=== PATIENT | male | born 1955 | race Caucasian/White ===

== ENCOUNTER 2017-10-21 07:15 | Emergency (ER) | payer MEDICAID ==
--- NOTE | 2017-10-21 08:30 | EDM.PDOC ---
ED HPI GENERAL MEDICAL PROBLEM - General Chief Complaint: Cardiovascular Problem Stated Complaint: RAPID HEARTBEAT Time Seen by Provider: 10/21/17 07:45 Source of Information: Reports: Patient, Family History Limitations: Reports: No Limitations - History of Present Illness INITIAL COMMENTS - FREE TEXT/NARRATIVE: 62-year-old male with mild tremor, "shakiness", and mild tachycardia over the past several weeks. His brother noticed his symptoms 3 days ago and convinced him to stop drinking coffee, the patient has also been on a very strict ketogenic diet for several weeks. He has had some significant weight loss. He denies any fever or chills, however he does have a temperature of 101.5. Has a chronic slight cough, no nausea or vomiting, normal bowels, no gastrointestinal or symptoms. Has no pain. No headaches. Sleeps well. He feels his appetite is normal. No significant edema, no trauma, he has not seen a doctor in 18 years. He quit smoking 2 years ago. Onset: Unknown/Unsure Severity: Mild Associated Symptoms: Reports: Cough. Denies: Confusion, Chest Pain, Headaches, Loss of Appetite, Malaise, Nausea/Vomiting, Shortness of Breath, Weakness - Related Data Allergies Allergy/AdvReac Type Severity Reaction Status Date / Time Tetanus Vaccines and Toxoid Allergy Other Verified 10/21/17 07:38 Home Meds: Home Meds Ascorbic Acid [Vitamin C] 1,000 mg PO DAILY 10/21/17 [History] Multivitamin [Multivitamins] 1 tab PO DAILY 10/21/17 [History] Ranitidine [Zantac] 75 mg PO DAILY PRN 10/21/17 [History] Past Medical History Respiratory History: Reports: Other (See Below) Other Respiratory History: patient has not had a daignosis but c/o "breathing issues"-50 year-1-2ppd hx. Genitourinary History: Reports: Pyelonephritis Musculoskeletal History: Reports: Fracture Neurological History: Reports: Other (See Below) Other Neuro History: hx of aneurysm, with surgical repair, has a shunt. Social & Family History - Tobacco Use Smoking Status *Q: Former Smoker Used Tobacco, but Quit: Yes Month/Year Tobacco Last Used: 0 - Recreational Drug Use Recreational Drug Use: No ED ROS GENERAL - Review of Systems Review Of Systems: See Below Constitutional: Reports: Chills, Night Sweats, Weight Loss (Intentional). Denies: Malaise, Weakness HEENT: Reports: No Symptoms Respiratory: Reports: Cough. Denies: Shortness of Breath Cardiovascular: Reports: Palpitations (Patient's tachycardia is mostly monitored with palpation or on home monitor, he does not feel a lot of symptoms or palpitations). Denies: Chest Pain GI/Abdominal: Denies: Abdominal Pain, Anorexia, Decreased Appetite, Nausea, Vomiting : Reports: No Symptoms Musculoskeletal: Reports: No Symptoms Skin: Reports: No Symptoms Neurological: Reports: Other (Chronic "shakiness") Psychiatric: Reports: No Symptoms ED EXAM, GENERAL - Physical Exam Exam: See Below Exam Limited By: No Limitations General Appearance: Alert, No Apparent Distress Eye Exam: Bilateral Eye: Normal Inspection Throat/Mouth: Normal Inspection Head: Atraumatic Respiratory/Chest: No Respiratory Distress, Decreased Breath Sounds (Some decreased breath sounds at both bases, no rales or rhonchi are heard) Cardiovascular: Regular Rate, Rhythm, Tachycardia, Extra Beats (Occasional ectopic beat) GI/Abdominal: Soft, Non-Tender, No Distention, No Mass. No: Hepatomegaly Back Exam: Normal Inspection Extremities: Normal Inspection. No: Pedal Edema Neurological: Alert, Oriented, No Motor/Sensory Deficits Psychiatric: Normal Affect, Normal Mood Skin Exam: Warm, Dry EKG INTERPRETATION EKG Date: 10/21/17 Rhythm: NSR Rate (Beats/Min): 112 QRS: Normal EKG Interpretation Comments: EKG is normal sinus rhythm, monitor shows occasional PVC or PAC not captured on EKG. Course - Vital Signs Last Recorded V/S: Last Vital Signs Temp 100.5 F 10/21/17 09:01 Pulse 116 H 10/21/17 09:01 Resp 16 10/21/17 09:01 BP 125/79 10/21/17 09:01 Pulse Ox 97 10/21/17 09:01 - Orders/Labs/Meds Orders: Active Orders 24 hr Category Date Time Status EKG Documentation Completion [RC] ASDIRECTED Care 10/21/17 08:07 Active DRUG SCREEN, URINE [URCHEM] Stat Lab 10/21/17 08:32 Ordered UA W/MICROSCOPIC [URIN] Urgent Lab 10/21/17 08:32 Ordered EKG 12 Lead [EK] Routine Ther 10/21/17 08:06 Ordered Labs: Laboratory Tests 10/21/17 10/21/17 10/21/17 Range/Units 08:06 08:06 08:07 WBC 19.9 H (4.5-11.0) K/uL RBC 3.81 L (4.30-5.90) M/uL Hgb 11.6 L (12.0-15.0) g/dL Hct 35.2 L (40.0-54.0) % MCV 92 (80-98) fL MCH 30 (27-31) pg MCHC 33 (32-36) % Plt Count 582 H (150-400) K/uL Neut % (Auto) 91 H (36-66) % Lymph % (Auto) 3 L (24-44) % [place] % (Auto) 6 (2-6) % Eos % (Auto) 0 L (2-4) % Baso % (Auto) 0 (0-1) % Sodium 128 L (140-148) mmol/L Potassium 3.6 (3.6-5.2) mmol/L Chloride 90 L (100-108) mmol/L Carbon Dioxide 32 (21-32) mmol/L Anion Gap 9.6 (5.0-14.0) mmol/L BUN 10 (7-18) mg/dL Creatinine 0.9 (0.8-1.3) mg/dL Est Cr Clr Drug Dosing 78.15 mL/min Estimated GFR (MDRD) > 60 (>60) Glucose 117 H (74-106) mg/dL Calcium 8.2 L (8.5-10.1) mg/dL Total Bilirubin 0.5 (0.2-1.0) mg/dL AST 56 H (15-37) U/L ALT 48 (12-78) U/L Alkaline Phosphatase 72 (46-116) U/L Total Protein 7.2 (6.4-8.2) g/dL Albumin 1.8 L (3.4-5.0) g/dL Globulin 5.4 H (2.3-3.5) g/dL Albumin/Globulin Ratio 0.3 L (1.2-2.2) TSH, Ultra Sensitive 2.020 (0.358-3.740) uIU/mL Urine Color Urine Appearance Urine pH (4.5-8.0) Ur Specific [place] (1.008-1.030) Urine Protein (NEGATIVE) mg/dL Urine Glucose (UA) (NEGATIVE) mg/dL Urine Ketones (NEGATIVE) mg/dL Urine Occult Blood (NEGATIVE) Urine Nitrite (NEGAITVE) Urine Bilirubin (NEGATIVE) Urine Urobilinogen (NORMAL) mg/dL Ur Leukocyte Esterase (NEGATIVE) Urine RBC (0-5) Urine WBC (0-5) Ur Epithelial Cells Amorphous Sediment Urine Bacteria Urine Mucus Urine Opiates Screen (NEGATIVE) Ur Oxycodone Screen (NEGATIVE) Urine Methadone Screen (NEGATIVE) Ur Propoxyphene Screen (NEGATIVE) Ur Barbiturates Screen (NEGATIVE) Ur Tricyclics Screen (NEGATIVE) Ur Phencyclidine Scrn (NEGATIVE) Ur Amphetamine Screen (NEGATIVE) U Methamphetamines Scrn (NEGATIVE) Urine MDMA Screen (NEGATIVE) U Benzodiazepines Scrn (NEGATIVE) U Cocaine Metab Screen (NEGATIVE) U Marijuana (THC) Screen (NEGATIVE) 10/21/17 10/21/17 Range/Units 08:32 08:32 WBC (4.5-11.0) K/uL RBC (4.30-5.90) M/uL Hgb (12.0-15.0) g/dL Hct (40.0-54.0) % MCV (80-98) fL MCH (27-31) pg MCHC (32-36) % Plt Count (150-400) K/uL Neut % (Auto) (36-66) % Lymph % (Auto) (24-44) % [place] % (Auto) (2-6) % Eos % (Auto) (2-4) % Baso % (Auto) (0-1) % Sodium (140-148) mmol/L Potassium (3.6-5.2) mmol/L Chloride (100-108) mmol/L Carbon Dioxide (21-32) mmol/L Anion Gap (5.0-14.0) mmol/L BUN (7-18) mg/dL Creatinine (0.8-1.3) mg/dL Est Cr Clr Drug Dosing mL/min Estimated GFR (MDRD) (>60) Glucose (74-106) mg/dL Calcium (8.5-10.1) mg/dL Total Bilirubin (0.2-1.0) mg/dL AST (15-37) U/L ALT (12-78) U/L Alkaline Phosphatase (46-116) U/L Total Protein (6.4-8.2) g/dL Albumin (3.4-5.0) g/dL Globulin (2.3-3.5) g/dL Albumin/Globulin Ratio (1.2-2.2) TSH, Ultra Sensitive (0.358-3.740) uIU/mL Urine Color Yellow Urine Appearance Clear Urine pH 7.0 (4.5-8.0) Ur Specific [place] 1.005 L (1.008-1.030) Urine Protein Negative (NEGATIVE) mg/dL Urine Glucose (UA) Normal (NEGATIVE) mg/dL Urine Ketones Negative (NEGATIVE) mg/dL Urine Occult Blood Moderate (NEGATIVE) Urine Nitrite Negative (NEGAITVE) Urine Bilirubin Negative (NEGATIVE) Urine Urobilinogen Normal (NORMAL) mg/dL Ur Leukocyte Esterase Negative (NEGATIVE) Urine RBC 0-5 (0-5) Urine WBC Not seen (0-5) Ur Epithelial Cells Not seen Amorphous Sediment Not seen Urine Bacteria Not seen Urine Mucus Not seen Urine Opiates Screen Negative (NEGATIVE) Ur Oxycodone Screen Negative (NEGATIVE) Urine Methadone Screen Negative (NEGATIVE) Ur Propoxyphene Screen Negative (NEGATIVE) Ur Barbiturates Screen Negative (NEGATIVE) Ur Tricyclics Screen Negative (NEGATIVE) Ur Phencyclidine Scrn Negative (NEGATIVE) Ur Amphetamine Screen Negative (NEGATIVE) U Methamphetamines Scrn Negative (NEGATIVE) Urine MDMA Screen Negative (NEGATIVE) U Benzodiazepines Scrn Negative (NEGATIVE) U Cocaine Metab Screen Negative (NEGATIVE) U Marijuana (THC) Screen Positive H (NEGATIVE) - Re-Assessments/Exams Free Text/Narrative Re-Assessment/Exam: 10/21/17 08:34 Cardiac monitoring revealed a persistent sinus tachycardia rate between 108 and 120. Occasional PVC or PAC was present. His temperature was 101.5, a CBC, CMP, TSH, UA, urine drug screen, and two-view chest x-ray were obtained. 10/21/17 09:28 White count is 19,900, TSH is normal, UA is clear that the chest x-ray confirms a right upper lobe pneumonia. Patient is stable enough to be treated as an outpatient and he would prefer that. He was started on Levaquin 500 mg daily and will get 10 days worth, and recheck at the clinic in 2 weeks for another chest x-ray. He'll return sooner if worsening despite treatment. Encouraged him to stay hydrated and get a good normal diet until better. Departure - Departure Time of Disposition: 09:47 Disposition: Home, Self-Care 01 Condition: Fair Clinical Impression: Right upper lobe pneumonia Qualifiers: Pneumonia type: due to unspecified organism Qualified Code(s): J18.1 - Lobar pneumonia, unspecified organism Instructions: Community-Acquired Pneumonia, Adult, [id number] Referrals: PCP,None [Primary Care Provider] - Forms: ED Department Discharge Care Plan Goals: Take antibiotic daily as directed, drink lots of water and rest. Try to eat a regular diet until better. Recheck with Cherie Reed at the clinic in 2 weeks for a repeat chest x-ray in follow-up. Return sooner if worsening despite treatment such as shortness of breath, persistent nausea and vomiting or pain. - My Orders Last 24 Hours: My Active Orders 10/21/17 08:06 EKG 12 Lead [EK] Routine 10/21/17 08:07 EKG Documentation Completion [RC] ASDIRECTED 10/21/17 08:32 DRUG SCREEN, URINE [URCHEM] Stat UA W/MICROSCOPIC [URIN] Urgent - Assessment/Plan Last 24 Hours: My Active Orders 10/21/17 08:06 EKG 12 Lead [EK] Routine 10/21/17 08:07 EKG Documentation Completion [RC] ASDIRECTED 10/21/17 08:32 DRUG SCREEN, URINE [URCHEM] Stat UA W/MICROSCOPIC [URIN] Urgent
--- NOTE | 2017-10-21 09:04 | CR ---
Two-view chest There is focal density along the right upper lobe. The finding is most consistent with probable pneum onia. The remaining lung callejas are clear. The heart and vascular structures are within normal limits . Impression: 1. Right upper lobe infiltrate most consistent with pneumonia. Follow-up is recommended to confirm re solution.
== END 2017-10-21 09:47 | disposition home or self-care (01) ==
LOC: JP.ED 07:15
DX: J18.9 Pneumonia, unspecified organism (principal); Z87.891 Personal history of nicotine dependence; Z88.7 Allergy status to serum and vaccine
CPT/HCPCS: 36415; 71046; 71046-26; 80053; 80305-QW; 81001; 84443; 85025; 93005; 99284-25

== ENCOUNTER 2017-10-25 11:21 | Inpatient (IN) | payer MEDICAID ==
[2017-10-25] MEDS ORDERED: Sodium Chloride 0.9% 10 ML Syringe FLUSH PRN (12:30)
[2017-10-25] MEDS ORDERED: Sodium Chloride 0.9% 1,000 ML IV SCH (12:30)
--- NOTE | 2017-10-25 12:36 | EDM.PDOC ---
ED HPI GENERAL MEDICAL PROBLEM - General Chief Complaint: Respiratory Problem Stated Complaint: SENT FROM [place] FOR IV ANTIX Time Seen by Provider: 10/25/17 12:10 Source of Information: Reports: Patient, Family History Limitations: Reports: No Limitations - History of Present Illness INITIAL COMMENTS - FREE TEXT/NARRATIVE: Robbi presents today with complaints of worsening RUL pneumonia. He was evaluated at [facility] today and sent to the ER via private vehicle. He complains of worsening weakness, and not thinking clearly. He reports he has been taking levaquin 500mg PO daily as directed since 10/21/17. He was given rocephin 1 gram IM in the clinic today. - Related Data Allergies Allergy/AdvReac Type Severity Reaction Status Date / Time Tetanus Vaccines and Toxoid Allergy Other Verified 10/25/17 12:05 Home Meds: Home Meds Ascorbic Acid [Vitamin C] 1,000 mg PO DAILY 10/21/17 [History] Multivitamin [Multivitamins] 1 tab PO DAILY 10/21/17 [History] Ranitidine [Zantac] 75 mg PO DAILY PRN 10/21/17 [History] Past Medical History HEENT History: Reports: Impaired Vision Cardiovascular History: Reports: Arrhythmia Respiratory History: Reports: Other (See Below) Other Respiratory History: patient has not had a daignosis but c/o "breathing issues"-50 year-1-2ppd hx. Gastrointestinal History: Reports: Chronic Diarrhea Genitourinary History: Reports: Pyelonephritis Musculoskeletal History: Reports: Fracture Neurological History: Reports: Other (See Below) Other Neuro History: hx of aneurysm, with surgical repair, has a shunt. - Past Surgical History Head Surgeries/Procedures: Reports: None HEENT Surgical History: Reports: Tonsillectomy Cardiovascular Surgical History: Reports: None Respiratory Surgical History: Reports: None Dermatological Surgical History: Reports: None Social & Family History - Tobacco Use Smoking Status *Q: Former Smoker Used Tobacco, but Quit: Yes Month/Year Tobacco Last Used: 2015 Second Hand Smoke Exposure: No - Caffeine Use Caffeine Use: Reports: Soda - Recreational Drug Use Recreational Drug Use: No ED ROS GENERAL - Review of Systems Review Of Systems: See Below Constitutional: Reports: Fever, Chills, Malaise, Weakness HEENT: Reports: No Symptoms Respiratory: Reports: Shortness of Breath, Cough. Denies: Wheezing, Sputum, Hemoptysis Cardiovascular: Reports: No Symptoms Endocrine: Reports: No Symptoms GI/Abdominal: Reports: Abdominal Pain. Denies: Constipation, Diarrhea, Distension, Flatus, Nausea, Vomiting : Reports: No Symptoms Musculoskeletal: Reports: No Symptoms Skin: Reports: No Symptoms Neurological: Reports: Confusion, Headache, Weakness. Denies: Dizziness, Numbness, Tingling, Trouble Speaking, Difficulty Walking, Change in Speech, Gait Disturbance Psychiatric: Reports: No Symptoms Hematologic/Lymphatic: Reports: No Symptoms Immunologic: Reports: No Symptoms ED EXAM, GENERAL - Physical Exam Exam: See Below Free Text/Narrative:: Robbi is an alert and oriented 62 year old male presenting with with worsening CAP. Patient pale, diaphoretic at times with chills. He was started on levaquin 500mg PO daily on 10/21/17. He followed up in the clinic in [place] today for increased lethargy and confusion, failed outpatient antibiotic therapy. Clinic noted decreased Hgb and WBC 18 with left shift. Exam Limited By: No Limitations General Appearance: Alert, WD/WN, Mild Distress Eye Exam: Bilateral Eye: EOMI, Normal Inspection Ears: Normal External Exam, Normal Canal, Hearing Grossly Normal, Normal TMs Ear Exam: Bilateral Ear: Auricle Normal, Canal Normal, TM normal Nose: Normal Inspection, Normal Mucosa, No Blood Throat/Mouth: Normal Inspection, Normal Lips, Normal Gums, Normal Oropharynx, Normal Voice, No Airway Compromise Head: Atraumatic, Normocephalic Neck: Normal Inspection, Supple, Non-Tender, Full Range of Motion. No: Lymphadenopathy (R), Lymphadenopathy (L) Respiratory/Chest: No Respiratory Distress, No Accessory Muscle Use, Chest Non- Tender, Decreased Breath Sounds. No: Rales, Rhonchi, Wheezing Cardiovascular: Normal Peripheral Pulses, Regular Rate, Rhythm, No Murmur, Other (Bilateral lower leg 1+ edema) Peripheral Pulses: 2+: Radial (L), Radial (R), Dorsalis Pedis (L), Dorsalis Pedis (R) GI/Abdominal: Normal Bowel Sounds, Soft, Non-Tender, No Organomegaly, No Distention, No Abnormal Bruit, No Mass Back Exam: Normal Inspection, Full Range of Motion. No: CVA Tenderness (R), CVA Tenderness (L) Extremities: Normal Range of Motion, Non-Tender, Normal Capillary Refill, Pedal Edema Neurological: Alert, Oriented, CN II-XII Intact, Normal Cognition, Normal Gait, Normal Reflexes, No Motor/Sensory Deficits Psychiatric: Normal Affect, Normal Mood Skin Exam: Warm, Dry, Intact, Normal Color, No Rash Lymphatic: No Adenopathy Course - Vital Signs Last Recorded V/S: Last Vital Signs Temp 35.9 C 10/25/17 12:07 Pulse 87 10/25/17 13:28 Resp 16 10/25/17 13:28 BP 116/87 10/25/17 13:28 Pulse Ox 97 10/25/17 13:28 - Orders/Labs/Meds Orders: Active Orders 24 hr Category Date Time Status Vital Signs [RC] Q1H Care 10/25/17 12:28 Active CULTURE BLOOD [BC] Urgent Lab 10/25/17 12:45 Received CULTURE BLOOD [BC] Urgent Lab 10/25/17 12:45 Received UA W/MICROSCOPIC [URIN] Stat Lab 10/25/17 12:58 Ordered Sodium Chloride 0.9% [Normal Saline] 1,000 ml Med 10/25/17 12:30 Active IV ASDIRECTED Sodium Chloride 0.9% [Saline Flush] Med 10/25/17 12:30 Active 10 ml FLUSH ASDIRECTED PRN Blood Culture x2 Reflex Set [OM.PC] Urgent Oth 10/25/17 12:28 Ordered Saline Lock Insert [OM.PC] Routine Oth 10/25/17 12:30 Ordered Medication Orders Sodium Chloride (Normal Saline) 1,000 mls @ 500 mls/hr IV ASDIRECTED [facility] Last Admin: 10/25/17 12:57 Dose: 500 mls/hr Sodium Chloride (Normal Saline) 100 mls @ 3 mls/sec IV ASDIRECTED [facility] Last Admin: 10/25/17 15:41 Dose: 3 mls/sec Iopamidol (Isovue-300 (61%)) 100 ml IV . DIRECTED PRN PRN Reason: RADIOLOGY EXAM Stop: 10/26/17 15:35 Last Admin: 10/25/17 15:41 Dose: 100 ml Sodium Chloride (Saline Flush) 10 ml FLUSH ASDIRECTED PRN PRN Reason: Keep Vein Open Last Admin: 10/25/17 15:38 Dose: 10 ml Labs: Laboratory Tests 10/25/17 10/25/17 10/25/17 Range/Units 12:45 12:45 12:45 WBC 17.2 H (4.5-11.0) K/uL RBC 3.28 L (4.30-5.90) M/uL Hgb 10.0 L (12.0-15.0) g/dL Hct 30.4 L (40.0-54.0) % MCV 93 (80-98) fL MCH 31 (27-31) pg MCHC 33 (32-36) % Plt Count 546 H (150-400) K/uL Add Manual Diff Yes Neutrophils % (Manual) 79 H (36-66) % Band Neutrophils % 9 (5-11) % Lymphocytes % (Manual) 3 L (24-44) % Monocytes % (Manual) 9 H (2-6) % Sodium 127 L (140-148) mmol/L Potassium 3.7 (3.6-5.2) mmol/L Chloride 89 L (100-108) mmol/L Carbon Dioxide 33 H (21-32) mmol/L Anion Gap 8.7 (5.0-14.0) mmol/L BUN 12 (7-18) mg/dL Creatinine 0.9 (0.8-1.3) mg/dL Est Cr Clr Drug Dosing 78.15 mL/min Estimated GFR (MDRD) > 60 (>60) Glucose 136 H (74-106) mg/dL Lactic Acid 3.3 H (0.4-2.0) mmol/L Calcium 8.5 (8.5-10.1) mg/dL Total Bilirubin 0.4 (0.2-1.0) mg/dL AST 79 H (15-37) U/L ALT 66 (12-78) U/L Alkaline Phosphatase 79 (46-116) U/L C-Reactive Protein 20.65 H (0.0-0.3) mg/dL Total Protein 6.5 (6.4-8.2) g/dL Albumin 1.5 L (3.4-5.0) g/dL Globulin 5.0 H (2.3-3.5) g/dL Albumin/Globulin Ratio 0.3 L (1.2-2.2) Urine Color Urine Appearance Urine pH (4.5-8.0) Ur Specific [place] (1.008-1.030) Urine Protein (NEGATIVE) mg/dL Urine Glucose (UA) (NEGATIVE) mg/dL Urine Ketones (NEGATIVE) mg/dL Urine Occult Blood (NEGATIVE) Urine Nitrite (NEGAITVE) Urine Bilirubin (NEGATIVE) Urine Urobilinogen (NORMAL) mg/dL Ur Leukocyte Esterase (NEGATIVE) Urine RBC (0-5) Urine WBC (0-5) Ur Epithelial Cells Amorphous Sediment Urine Bacteria Urine Mucus 10/25/17 Range/Units 12:58 WBC (4.5-11.0) K/uL RBC (4.30-5.90) M/uL Hgb (12.0-15.0) g/dL Hct (40.0-54.0) % MCV (80-98) fL MCH (27-31) pg MCHC (32-36) % Plt Count (150-400) K/uL Add Manual Diff Neutrophils % (Manual) (36-66) % Band Neutrophils % (5-11) % Lymphocytes % (Manual) (24-44) % Monocytes % (Manual) (2-6) % Sodium (140-148) mmol/L Potassium (3.6-5.2) mmol/L Chloride (100-108) mmol/L Carbon Dioxide (21-32) mmol/L Anion Gap (5.0-14.0) mmol/L BUN (7-18) mg/dL Creatinine (0.8-1.3) mg/dL Est Cr Clr Drug Dosing mL/min Estimated GFR (MDRD) (>60) Glucose (74-106) mg/dL Lactic Acid (0.4-2.0) mmol/L Calcium (8.5-10.1) mg/dL Total Bilirubin (0.2-1.0) mg/dL AST (15-37) U/L ALT (12-78) U/L Alkaline Phosphatase (46-116) U/L C-Reactive Protein (0.0-0.3) mg/dL Total Protein (6.4-8.2) g/dL Albumin (3.4-5.0) g/dL Globulin (2.3-3.5) g/dL Albumin/Globulin Ratio (1.2-2.2) Urine Color Yellow Urine Appearance Clear Urine pH 6.5 (4.5-8.0) Ur Specific [place] 1.000 L (1.008-1.030) Urine Protein Negative (NEGATIVE) mg/dL Urine Glucose (UA) Normal (NEGATIVE) mg/dL Urine Ketones Negative (NEGATIVE) mg/dL Urine Occult Blood Negative (NEGATIVE) Urine Nitrite Negative (NEGAITVE) Urine Bilirubin Negative (NEGATIVE) Urine Urobilinogen Normal (NORMAL) mg/dL Ur Leukocyte Esterase Negative (NEGATIVE) Urine RBC Not seen (0-5) Urine WBC Not seen (0-5) Ur Epithelial Cells Not seen Amorphous Sediment Not seen Urine Bacteria Not seen Urine Mucus Not seen Patient lab work reviewed. Dr. Martin notified of patient status, sepsis secondary to RUL pneumonia. Meds: Medications Generic Name Dose Route Start Last Admin Trade Name Freq PRN Reason Stop Dose Admin Sodium Chloride 1,000 mls @ 500 mls/hr 10/25/17 12:30 10/25/17 12:57 Normal Saline IV 500 mls/hr ASDIRECTED KATHY Administration Sodium Chloride 100 mls @ 3 mls/sec 10/25/17 15:45 10/25/17 15:41 Normal Saline IV 3 mls/sec ASDIRECTED KATHY Administration Iopamidol 100 ml 10/25/17 15:34 10/25/17 15:41 Isovue-300 (61%) IV 10/26/17 15:35 100 ml . DIRECTED PRN Administration RADIOLOGY EXAM Sodium Chloride 10 ml 10/25/17 12:30 10/25/17 15:38 Saline Flush FLUSH 10 ml ASDIRECTED PRN Administration Keep Vein Open Departure - Departure Time of Disposition: 15:00 Disposition: Admitted As Inpatient 65 Condition: Fair Clinical Impression: Pneumonia - Discharge Information *PRESCRIPTION DRUG MONITORING PROGRAM REVIEWED*: No *COPY OF PRESCRIPTION DRUG MONITORING REPORT IN PATIENT SILVESTRE: Not Applicable - My Orders Last 24 Hours: My Active Orders 10/25/17 12:28 Vital Signs [RC] Q1H Blood Culture x2 Reflex Set [OM.PC] Urgent 10/25/17 12:30 Sodium Chloride 0.9% [Normal Saline] 1,000 ml IV ASDIRECTED Sodium Chloride 0.9% [Saline Flush] 10 ml FLUSH ASDIRECTED PRN Saline Lock Insert [OM.PC] Routine 10/25/17 12:45 CULTURE BLOOD [BC] Urgent CULTURE BLOOD [BC] Urgent 10/25/17 12:58 UA W/MICROSCOPIC [URIN] Stat - Assessment/Plan Last 24 Hours: My Active Orders 10/25/17 12:28 Vital Signs [RC] Q1H Blood Culture x2 Reflex Set [OM.PC] Urgent 10/25/17 12:30 Sodium Chloride 0.9% [Normal Saline] 1,000 ml IV ASDIRECTED Sodium Chloride 0.9% [Saline Flush] 10 ml FLUSH ASDIRECTED PRN Saline Lock Insert [OM.PC] Routine 10/25/17 12:45 CULTURE BLOOD [BC] Urgent CULTURE BLOOD [BC] Urgent 10/25/17 12:58 UA W/MICROSCOPIC [URIN] Stat Assessment:: Patient admitted per Dr. Anuj Martin for pneumonia and dehydration. Plan: Patient admit for pneumonia and dehydration.
[2017-10-25] MEDS ORDERED: Iopamidol 612 MG/ML 100 ML Bottle IV PRN (15:34)
--- NOTE | 2017-10-25 15:39 | PCM.HP ---
H&P History of Present Illness - General Date of Service: 10/25/17 Admit Problem/Dx: Admission Diagnosis/Problem Admission Diagnosis/Problem Right upper lobe pneumonia Source of Information: Patient, Provider History Limitations: Reports: No Limitations - History of Present Illness Initial Comments - Free Text/Narative: Robbi was sent to the emergency room from the clinic where he presented with weakness, nausea, anorexia. He is currently receiving levofloxacin for treatment of a right upper lobe pneumonia. He reports that his cough seems a little better and does not feel particularly short of breath. He has not been eating pretty much all week and has had very little oral intake. He has nausea throughout much of the day. No complaints of abdominal pain or diarrhea. No complaints of chest pain. He has been very sleepy but not able to get any good rest. When he was seen in the clinic this afternoon a repeat chest x-ray was performed and there was concern that his infiltrate seemed larger and this prompted the trip to the emergency room. workup in the emergency room has revealed hyponatremia and evidence for dehydration. His lactic acid level is elevated. He is not currently febrile. he will be admitted for management of a persistent right upper lobe pneumonia complicated by dehydration and anorexia. shortly after arrival to the floor the patient had an episode of staring with mostly left-sided tonic-clonic type movements/shaking. He was able to track during the episode but was not able to speak. The episode ended spontaneously before lorazepam could be administered. - Related Data Allergies/Adverse Reactions: Allergies Allergy/AdvReac Type Severity Reaction Status Date / Time Tetanus Vaccines and Toxoid Allergy Other Verified 10/25/17 12:05 Home Medications: Home Meds Ascorbic Acid [Vitamin C] 1,000 mg PO DAILY 10/21/17 [History] Multivitamin [Multivitamins] 1 tab PO DAILY 10/21/17 [History] Ranitidine [Zantac] 75 mg PO DAILY PRN 10/21/17 [History] Past Medical History HEENT History: Reports: Impaired Vision Cardiovascular History: Reports: Arrhythmia Respiratory History: Reports: Other (See Below) Other Respiratory History: patient has not had a daignosis but c/o "breathing issues"-49 year-1-2ppd hx. Gastrointestinal History: Reports: Chronic Diarrhea Genitourinary History: Reports: Pyelonephritis Musculoskeletal History: Reports: Fracture Neurological History: Reports: Other (See Below) Other Neuro History: hx of aneurysm, with surgical repair, has a shunt. - Past Surgical History Head Surgeries/Procedures: Reports: None HEENT Surgical History: Reports: Tonsillectomy Cardiovascular Surgical History: Reports: None Respiratory Surgical History: Reports: None Dermatological Surgical History: Reports: None Social & Family History - Family History Respiratory: Denies: COPD - Tobacco Use Smoking Status *Q: Former Smoker Used Tobacco, but Quit: Yes Month/Year Tobacco Last Used: 2015 Second Hand Smoke Exposure: No - Caffeine Use Caffeine Use: Reports: Soda - Alcohol Use Alcohol Use History: No - Recreational Drug Use Recreational Drug Use: No H&P Review of Systems - Review of Systems: Review Of Systems: See Below Free Text/Narrative: A complete 12 point review of systems was obtained. Pertinent positives and negatives are noted in the history of present illness. All other systems were reviewed and were negative except as noted. Exam - Exam Exam: See Below - Vital Signs Vital Signs: Last Vital Signs Temp 35.9 C 10/25/17 12:07 Pulse 87 10/25/17 13:28 Resp 16 10/25/17 13:28 BP 116/87 10/25/17 13:28 Pulse Ox 97 10/25/17 13:28 Weight: 65.771 kg - Exam Quality Assessment: No: Supplemental Oxygen General: Alert, Oriented, Cooperative. No: Mild Distress HEENT: Conjunctiva Clear. No: Mucosa Moist & [place] (dry), Scleral Icterus Neck: No: Supple, Lymphadenopathy, Thyromegaly Lungs: Clear to Auscultation, Normal Respiratory Effort. No: Wheezing Cardiovascular: Regular Rate, Regular Rhythm. No: Systolic Murmur GI/Abdominal Exam: Normal Bowel Sounds, Soft, No Distention, Tender (mild diffuse ttp ) Back Exam: Normal Inspection, Full Range of Motion Extremities: No Pedal Edema. No: Increased Warmth Skin: Warm, Dry Neuro Extensive - Mental Status: Alert, Oriented x3, Nl Response to Commands Neuro Extensive - Motor, Sensory, Reflexes: CN II-XII Intact. No: Dysarthria, Abnormal Motor Psychiatric: Alert, Normal Affect - Patient Data Lab Results Last 24 hrs: Laboratory Results - last 24 hr 10/25/17 10/25/17 10/25/17 Range/Units 12:45 12:45 12:45 WBC 17.2 H (4.5-11.0) K/uL RBC 3.28 L (4.30-5.90) M/uL Hgb 10.0 L (12.0-15.0) g/dL Hct 30.4 L (40.0-54.0) % MCV 93 (80-98) fL MCH 31 (27-31) pg MCHC 33 (32-36) % Plt Count 546 H (150-400) K/uL Add Manual Diff Yes Neutrophils % (Manual) 79 H (36-66) % Band Neutrophils % 9 (5-11) % Lymphocytes % (Manual) 3 L (24-44) % Monocytes % (Manual) 9 H (2-6) % Sodium 127 L (140-148) mmol/L Potassium 3.7 (3.6-5.2) mmol/L Chloride 89 L (100-108) mmol/L Carbon Dioxide 33 H (21-32) mmol/L Anion Gap 8.7 (5.0-14.0) mmol/L BUN 12 (7-18) mg/dL Creatinine 0.9 (0.8-1.3) mg/dL Est Cr Clr Drug Dosing 78.15 mL/min Estimated GFR (MDRD) > 60 (>60) Glucose 136 H (74-106) mg/dL Lactic Acid 3.3 H (0.4-2.0) mmol/L Calcium 8.5 (8.5-10.1) mg/dL Total Bilirubin 0.4 (0.2-1.0) mg/dL AST 79 H (15-37) U/L ALT 66 (12-78) U/L Alkaline Phosphatase 79 (46-116) U/L C-Reactive Protein 20.65 H (0.0-0.3) mg/dL Total Protein 6.5 (6.4-8.2) g/dL Albumin 1.5 L (3.4-5.0) g/dL Globulin 5.0 H (2.3-3.5) g/dL Albumin/Globulin Ratio 0.3 L (1.2-2.2) Urine Color Urine Appearance Urine pH (4.5-8.0) Ur Specific [place] (1.008-1.030) Urine Protein (NEGATIVE) mg/dL Urine Glucose (UA) (NEGATIVE) mg/dL Urine Ketones (NEGATIVE) mg/dL Urine Occult Blood (NEGATIVE) Urine Nitrite (NEGAITVE) Urine Bilirubin (NEGATIVE) Urine Urobilinogen (NORMAL) mg/dL Ur Leukocyte Esterase (NEGATIVE) Urine RBC (0-5) Urine WBC (0-5) Ur Epithelial Cells Amorphous Sediment Urine Bacteria Urine Mucus 10/25/17 Range/Units 12:58 WBC (4.5-11.0) K/uL RBC (4.30-5.90) M/uL Hgb (12.0-15.0) g/dL Hct (40.0-54.0) % MCV (80-98) fL MCH (27-31) pg MCHC (32-36) % Plt Count (150-400) K/uL Add Manual Diff Neutrophils % (Manual) (36-66) % Band Neutrophils % (5-11) % Lymphocytes % (Manual) (24-44) % Monocytes % (Manual) (2-6) % Sodium (140-148) mmol/L Potassium (3.6-5.2) mmol/L Chloride (100-108) mmol/L Carbon Dioxide (21-32) mmol/L Anion Gap (5.0-14.0) mmol/L BUN (7-18) mg/dL Creatinine (0.8-1.3) mg/dL Est Cr Clr Drug Dosing mL/min Estimated GFR (MDRD) (>60) Glucose (74-106) mg/dL Lactic Acid (0.4-2.0) mmol/L Calcium (8.5-10.1) mg/dL Total Bilirubin (0.2-1.0) mg/dL AST (15-37) U/L ALT (12-78) U/L Alkaline Phosphatase (46-116) U/L C-Reactive Protein (0.0-0.3) mg/dL Total Protein (6.4-8.2) g/dL Albumin (3.4-5.0) g/dL Globulin (2.3-3.5) g/dL Albumin/Globulin Ratio (1.2-2.2) Urine Color Yellow Urine Appearance Clear Urine pH 6.5 (4.5-8.0) Ur Specific [place] 1.000 L (1.008-1.030) Urine Protein Negative (NEGATIVE) mg/dL Urine Glucose (UA) Normal (NEGATIVE) mg/dL Urine Ketones Negative (NEGATIVE) mg/dL Urine Occult Blood Negative (NEGATIVE) Urine Nitrite Negative (NEGAITVE) Urine Bilirubin Negative (NEGATIVE) Urine Urobilinogen Normal (NORMAL) mg/dL Ur Leukocyte Esterase Negative (NEGATIVE) Urine RBC Not seen (0-5) Urine WBC Not seen (0-5) Ur Epithelial Cells Not seen Amorphous Sediment Not seen Urine Bacteria Not seen Urine Mucus Not seen Result Diagrams: 10/25/17 12:45 10/25/17 12:45 Imaging Impressions Last 24 hrs: CXR - images from the clinic were personally reviewed - there is a large persistent RUL infiltration. No mass or effusion. Heart size is normal. *Q Meaningful Use (ADM) - VTE Risk Assess *Q Each Risk Factor Represents 1 Point: Serious lung disease including pneumonia Total Score 1 Point Risk Factors: 1 Each Risk Factor Represents 2 Points: Age 60 - 74 Years Total Score 2 Point Risk Factors: 2 Each Risk Factor Represents 3 Points: None Total Score 3 Point Risk Factors: 0 Each Risk Factor Represents 5 Points: None Total Score 5 Point Risk Factors: 0 Venous Thromboembolism Risk Factor Score *Q: 3 - Problem List (1) Right upper lobe pneumonia SNOMED Code(s): 486559764 ICD Code: J18.1 - LOBAR PNEUMONIA, UNSPECIFIED ORGANISM Status: Acute Current Visit: No Qualifiers: Pneumonia type: due to unspecified organism Qualified Code(s): J18.1 - Lobar pneumonia, unspecified organism (2) Dehydration SNOMED Code(s): 55316469 ICD Code: E86.0 - DEHYDRATION Status: Acute Current Visit: Yes (3) Unintentional weight loss SNOMED Code(s): 581943866 ICD Code: R63.4 - ABNORMAL WEIGHT LOSS Status: Acute Current Visit: Yes (4) Seizures SNOMED Code(s): 23678637 ICD Code: R56.9 - UNSPECIFIED CONVULSIONS Status: Acute Current Visit: Yes Problem List Initiated/Reviewed/Updated: Yes Orders Last 24hrs: Active Orders 24 hr Category Date Time Status Patient Status Manage Transfer [TRANSFER] Routine ADT 10/25/17 15:18 Ordered Vital Signs [RC] Q1H Care 10/25/17 12:28 Active Chest w Cont [CT] Routine Exams 10/25/17 15:18 Ordered CULTURE BLOOD [BC] Urgent Lab 10/25/17 12:45 Received CULTURE BLOOD [BC] Urgent Lab 10/25/17 12:45 Received UA W/MICROSCOPIC [URIN] Stat Lab 10/25/17 12:58 Ordered Sodium Chloride 0.9% [Normal Saline] 1,000 ml Med 10/25/17 12:30 Active IV ASDIRECTED Sodium Chloride 0.9% [Saline Flush] Med 10/25/17 12:30 Active 10 ml FLUSH ASDIRECTED PRN Blood Culture x2 Reflex Set [OM.PC] Urgent Oth 10/25/17 12:28 Ordered Saline Lock Insert [OM.PC] Routine Oth 10/25/17 12:30 Ordered Resuscitation Status Routine Resus Stat 10/25/17 15:20 Ordered Medication Orders Sodium Chloride (Normal Saline) 1,000 mls @ 500 mls/hr IV ASDIRECTED KATHY Last Admin: 10/25/17 12:57 Dose: 500 mls/hr Sodium Chloride (Saline Flush) 10 ml FLUSH ASDIRECTED PRN PRN Reason: Keep Vein Open Assessment/Plan Comment:: ASSESSMENT AND PLAN - Right upper lobe pneumonia - complicated by anorexia and nausea. He is not hypoxic. Lactic acid is elevated but I think it's more related to dehydration and sepsis at this time. Right upper lobe infiltrate appears slightly larger today than earlier in the week. He seems to be failing outpatient management and would benefit from IV antibiotics and hydration. -CT scan of the chest to further evaluate the right upper lobe infiltrate -Antibiotic coverage with levofloxacin and Pip/Tazo -IV fluids -Repeat lactic acid -Supplement oxygen if needed -Nebulizers if needed -Sputum culture if able Seizures - patient has had what appear to be partial complex seizures. He does have a history of traumatic brain injury. -Keppra 500 mg every 12 hours -Lorazepam as needed for aborting seizures -Head CT Maintenance issues - - DVT prophylaxis - enoxaparin - GI prophylaxis - H2 zahida - Nutrition - regular diet as tolerated - [place] catheter - not indicated CODE STATUS - full code Admission justification - This patient will be admitted for inpatient services and is medically appropriate meeting medical necessity for inpatient admission as outlined in my documentation. I reasonably expect the patient will require inpatient services that span a period time over 2 midnights. I reasonably expect this patient to be discharged or transferred within 96 hours [facility]. Disposition - anticipate discharge to home after the hospital stay Primary care physician - Dr Praful Martin M.D.
[2017-10-25] MEDS ORDERED: Sodium Chloride 0.9% 100 ML IV SCH (15:45)
[2017-10-25] MEDS ORDERED: Ondansetron 4 MG/2 ML SDV IV PRN (16:14)
[2017-10-25] MEDS ORDERED: Albuterol 0.083% 2.5 MG/3 ML Neb Soln NEB PRN (16:14)
[2017-10-25] MEDS ORDERED: Ondansetron 4 MG Tab.DIS PO PRN (16:14)
[2017-10-25] MEDS ORDERED: Polyethylene Glycol 3350 Powder 17 GM Packet PO PRN (16:14)
[2017-10-25] MEDS ORDERED: LORazepam 2 MG/ML SDV ONE (16:35)
[2017-10-25] MEDS ORDERED: LORazepam 2 MG/ML SDV IVPUSH ONE (16:46)
[2017-10-25] MEDS: Acetaminophen 325 MG Tab PO PRN (16:53)
[2017-10-25] MEDS: Potassium Chloride 20 MEQ, Lidocaine 1% 2 ML in Sodium Chloride 0.9% 100 ML IV SCH ×2 (17:32→19:50)
[2017-10-25] MEDS: Piperacillin/Tazobactam/Dext 3.375 GM in Premix Bag 1 BAG IV SCH ×2 (17:32→23:28)
[2017-10-25] MEDS: levETIRAcetam 500 MG in Sodium Chloride 0.9% 100 ML IV SCH (18:36)
[2017-10-25] MEDS: Sodium Chloride 0.9% 1,000 ML IV SCH (23:31)
[2017-10-26] MEDS: levETIRAcetam 500 MG in Sodium Chloride 0.9% 100 ML IV SCH (05:34)
[2017-10-26] MEDS: LORazepam 2 MG/ML SDV IVPUSH PRN ×2 (05:37→17:23)
[2017-10-26] MEDS: Piperacillin/Tazobactam/Dext 3.375 GM in Premix Bag 1 BAG IV SCH ×4 (05:42→23:19)
[2017-10-26] MEDS ORDERED: Levofloxacin/Dextrose 5%-Water 750 MG in Premix Bag 1 BAG IV SCH (07:00)
[2017-10-26] MEDS ORDERED: cefTRIAXone 2 GM in Sodium Chloride 0.9% 50 ML IV SCH (09:00)
[2017-10-26] MEDS: Enoxaparin 40 MG/0.4 ML Syringe SUBCUT SCH (09:08)
--- NOTE | 2017-10-26 09:08 | PCM.PN ---
- General Info Date of Service: 10/26/17 Functional Status: Reports: Pain Controlled, Tolerating Diet - Review of Systems General: Reports: Fever Pulmonary: Reports: Shortness of Breath, Cough Neurological: Reports: Seizure Systems Review Comment:: The patient did have a couple more episodes of seizure-like activity since admission as well as 1 this morning. He reports that he feels better this morning and has less shortness of breath. He still has an intermittent cough with sputum production. He did have a fever last night. No complaints of abdominal pain or nausea today. Gram stain on the respiratory culture last night revealed moderate gram-positive cocci and some concern for fungal elements though slide review this morning revealed that it was long chains of gram-positive cocci. - Patient Data Vitals - Most Recent: Last Vital Signs Temp 37.6 C 10/26/17 08:59 Pulse 132 H 10/26/17 08:59 Resp 29 H 10/26/17 08:59 BP 117/78 10/26/17 08:59 Pulse Ox 95 10/26/17 08:59 Weight - Most Recent: 65.771 kg I&O - Last 24 Hours: Intake & Output 10/25/17 10/26/17 10/26/17 22:59 06:59 14:59 Intake Total 200 2200 150 Output Total 300 200 350 Balance -100 2000 -200 Lab Results Last 24 Hours: Laboratory Results - last 24 hr 10/25/17 10/25/17 10/25/17 Range/Units 12:45 12:45 12:45 WBC 17.2 H (4.5-11.0) K/uL RBC 3.28 L (4.30-5.90) M/uL Hgb 10.0 L (12.0-15.0) g/dL Hct 30.4 L (40.0-54.0) % MCV 93 (80-98) fL MCH 31 (27-31) pg MCHC 33 (32-36) % Plt Count 546 H (150-400) K/uL Add Manual Diff Yes Neutrophils % (Manual) 79 H (36-66) % Band Neutrophils % 9 (5-11) % Lymphocytes % (Manual) 3 L (24-44) % Monocytes % (Manual) 9 H (2-6) % Sodium 127 L (140-148) mmol/L Potassium 3.7 (3.6-5.2) mmol/L Chloride 89 L (100-108) mmol/L Carbon Dioxide 33 H (21-32) mmol/L Anion Gap 8.7 (5.0-14.0) mmol/L BUN 12 (7-18) mg/dL Creatinine 0.9 (0.8-1.3) mg/dL Est Cr Clr Drug Dosing 78.15 mL/min Estimated GFR (MDRD) > 60 (>60) Glucose 136 H (74-106) mg/dL Lactic Acid 3.3 H (0.4-2.0) mmol/L Calcium 8.5 (8.5-10.1) mg/dL Total Bilirubin 0.4 (0.2-1.0) mg/dL AST 79 H (15-37) U/L ALT 66 (12-78) U/L Alkaline Phosphatase 79 (46-116) U/L C-Reactive Protein 20.65 H (0.0-0.3) mg/dL Total Protein 6.5 (6.4-8.2) g/dL Albumin 1.5 L (3.4-5.0) g/dL Globulin 5.0 H (2.3-3.5) g/dL Albumin/Globulin Ratio 0.3 L (1.2-2.2) Urine Color Urine Appearance Urine pH (4.5-8.0) Ur Specific [place] (1.008-1.030) Urine Protein (NEGATIVE) mg/dL Urine Glucose (UA) (NEGATIVE) mg/dL Urine Ketones (NEGATIVE) mg/dL Urine Occult Blood (NEGATIVE) Urine Nitrite (NEGAITVE) Urine Bilirubin (NEGATIVE) Urine Urobilinogen (NORMAL) mg/dL Ur Leukocyte Esterase (NEGATIVE) Urine RBC (0-5) Urine WBC (0-5) Ur Epithelial Cells Amorphous Sediment Urine Bacteria Urine Mucus 10/25/17 10/25/17 10/26/17 Range/Units 12:58 18:21 05:09 WBC 17.6 H (4.5-11.0) K/uL RBC 3.33 L (4.30-5.90) M/uL Hgb 9.8 L (12.0-15.0) g/dL Hct 31.1 L (40.0-54.0) % MCV 93 (80-98) fL MCH 29 (27-31) pg MCHC 32 (32-36) % Plt Count 523 H (150-400) K/uL Add Manual Diff Neutrophils % (Manual) (36-66) % Band Neutrophils % (5-11) % Lymphocytes % (Manual) (24-44) % Monocytes % (Manual) (2-6) % Sodium (140-148) mmol/L Potassium (3.6-5.2) mmol/L Chloride (100-108) mmol/L Carbon Dioxide (21-32) mmol/L Anion Gap (5.0-14.0) mmol/L BUN (7-18) mg/dL Creatinine (0.8-1.3) mg/dL Est Cr Clr Drug Dosing mL/min Estimated GFR (MDRD) (>60) Glucose (74-106) mg/dL Lactic Acid 1.2 (0.4-2.0) mmol/L Calcium (8.5-10.1) mg/dL Total Bilirubin (0.2-1.0) mg/dL AST (15-37) U/L ALT (12-78) U/L Alkaline Phosphatase (46-116) U/L C-Reactive Protein (0.0-0.3) mg/dL Total Protein (6.4-8.2) g/dL Albumin (3.4-5.0) g/dL Globulin (2.3-3.5) g/dL Albumin/Globulin Ratio (1.2-2.2) Urine Color Yellow Urine Appearance Clear Urine pH 6.5 (4.5-8.0) Ur Specific [place] 1.000 L (1.008-1.030) Urine Protein Negative (NEGATIVE) mg/dL Urine Glucose (UA) Normal (NEGATIVE) mg/dL Urine Ketones Negative (NEGATIVE) mg/dL Urine Occult Blood Negative (NEGATIVE) Urine Nitrite Negative (NEGAITVE) Urine Bilirubin Negative (NEGATIVE) Urine Urobilinogen Normal (NORMAL) mg/dL Ur Leukocyte Esterase Negative (NEGATIVE) Urine RBC Not seen (0-5) Urine WBC Not seen (0-5) Ur Epithelial Cells Not seen Amorphous Sediment Not seen Urine Bacteria Not seen Urine Mucus Not seen 10/26/17 Range/Units 05:09 WBC (4.5-11.0) K/uL RBC (4.30-5.90) M/uL Hgb (12.0-15.0) g/dL Hct (40.0-54.0) % MCV (80-98) fL MCH (27-31) pg MCHC (32-36) % Plt Count (150-400) K/uL Add Manual Diff Neutrophils % (Manual) (36-66) % Band Neutrophils % (5-11) % Lymphocytes % (Manual) (24-44) % Monocytes % (Manual) (2-6) % Sodium 134 L (140-148) mmol/L Potassium 3.9 (3.6-5.2) mmol/L Chloride 99 L (100-108) mmol/L Carbon Dioxide 31 (21-32) mmol/L Anion Gap 7.9 (5.0-14.0) mmol/L BUN 10 (7-18) mg/dL Creatinine 0.8 (0.8-1.3) mg/dL Est Cr Clr Drug Dosing 87.92 mL/min Estimated GFR (MDRD) > 60 (>60) Glucose 121 H (74-106) mg/dL Lactic Acid (0.4-2.0) mmol/L Calcium 8.1 L (8.5-10.1) mg/dL Total Bilirubin (0.2-1.0) mg/dL AST (15-37) U/L ALT (12-78) U/L Alkaline Phosphatase (46-116) U/L C-Reactive Protein (0.0-0.3) mg/dL Total Protein (6.4-8.2) g/dL Albumin (3.4-5.0) g/dL Globulin (2.3-3.5) g/dL Albumin/Globulin Ratio (1.2-2.2) Urine Color Urine Appearance Urine pH (4.5-8.0) Ur Specific [place] (1.008-1.030) Urine Protein (NEGATIVE) mg/dL Urine Glucose (UA) (NEGATIVE) mg/dL Urine Ketones (NEGATIVE) mg/dL Urine Occult Blood (NEGATIVE) Urine Nitrite (NEGAITVE) Urine Bilirubin (NEGATIVE) Urine Urobilinogen (NORMAL) mg/dL Ur Leukocyte Esterase (NEGATIVE) Urine RBC (0-5) Urine WBC (0-5) Ur Epithelial Cells Amorphous Sediment Urine Bacteria Urine Mucus Ricardo Results Last 24 Hours: Microbiology 10/25/17 19:27 Gram Stain - Final Sputum - Expectorated Med Orders - Current: Current Medications Acetaminophen (Tylenol) 650 mg PO Q4H PRN PRN Reason: Pain (Mild 1-3)/fever Last Admin: 10/25/17 16:53 Dose: 650 mg Albuterol (Proventil Neb Soln) 2.5 mg NEB Q4H PRN PRN Reason: Shortness Of Breath/wheezing Enoxaparin Sodium (Lovenox) 40 mg SUBCUT DAILY [facility] Levofloxacin/Dextrose 750 mg/ (Premix) 150 mls @ 100 mls/hr IV Q24H [facility] Last Admin: 10/26/17 07:14 Dose: 100 mls/hr Sodium Chloride (Normal Saline) 1,000 mls @ 125 mls/hr IV ASDIRECTED [facility] Last Admin: 10/25/17 23:31 Dose: 125 mls/hr Piperacillin/Tazobactam/ (Dextrose 3.375 gm/ Premix) 50 mls @ 100 mls/hr IV Q6H [facility] Last Admin: 10/26/17 05:42 Dose: 100 mls/hr Levetiracetam 500 mg/ Sodium (Chloride) 105 mls @ 400 mls/hr IV Q12H [facility] Last Admin: 10/26/17 05:34 Dose: 400 mls/hr Iopamidol (Isovue-300 (61%)) 100 ml IV . DIRECTED PRN PRN Reason: RADIOLOGY EXAM Stop: 10/26/17 15:35 Last Admin: 10/25/17 15:41 Dose: 100 ml Lorazepam (Ativan) 1 mg IVPUSH Q1H PRN PRN Reason: Seizures Last Admin: 10/26/17 05:37 Dose: 1 mg Ondansetron HCl (Zofran Odt) 4 mg PO Q6H PRN PRN Reason: Nausea able to take PO Ondansetron HCl (Zofran) 4 mg IV Q6H PRN PRN Reason: Nausea/Vomiting Polyethylene Glycol (Miralax) 17 gm PO DAILY PRN PRN Reason: Constipation Senna/Docusate Sodium (Senna Plus) 1 tab PO BID PRN PRN Reason: Constipation Sodium Chloride (Saline Flush) 10 ml FLUSH ASDIRECTED PRN PRN Reason: Keep Vein Open Last Admin: 10/25/17 15:38 Dose: 10 ml Discontinued Medications Sodium Chloride (Normal Saline) 1,000 mls @ 500 mls/hr IV ASDIRECTED [facility] Last Admin: 10/25/17 12:57 Dose: 500 mls/hr Sodium Chloride (Normal Saline) 100 mls @ 3 mls/sec IV ASDIRECTED [facility] Last Admin: 10/25/17 15:41 Dose: 3 mls/sec Ceftriaxone Sodium 2 gm/ (Sodium Chloride) 50 mls @ 100 mls/hr IV Q24H [facility] Potassium Chloride 20 meq/Lidocaine HCl 2 ml/ Sodium Chloride 112 mls @ 50 mls/ hr IV Q2H KATHY Stop: 10/25/17 20:59 Last Admin: 10/25/17 19:50 Dose: 50 mls/hr Lorazepam (Ativan) Confirm Administered Dose 2 mg .ROUTE .STK-MED ONE Stop: 10/25/17 16:36 Last Admin: 10/25/17 17:08 Dose: Not Given Lorazepam (Ativan) 1 mg IVPUSH ONETIME ONE Stop: 10/25/17 16:47 Last Admin: 10/25/17 16:50 Dose: 1 mg - Exam Quality Assessment: Supplemental Oxygen General: Alert, Oriented, Cooperative, No Acute Distress Lungs: Clear to Auscultation, Normal Respiratory Effort. No: Crackles, Wheezing Cardiovascular: Regular Rhythm, Tachycardia GI/Abdominal Exam: Soft, No Distention Extremities: No Pedal Edema. No: Increased Warmth Skin: Warm, Dry Psy/Mental Status: Alert, Normal Affect - Problem List & Annotations (1) Right upper lobe pneumonia SNOMED Code(s): 308832619 Code(s): J18.1 - LOBAR PNEUMONIA, UNSPECIFIED ORGANISM Status: Acute Current Visit: No Qualifiers: Pneumonia type: due to unspecified organism Qualified Code(s): J18.1 - Lobar pneumonia, unspecified organism (2) Dehydration SNOMED Code(s): 99654185 Code(s): E86.0 - DEHYDRATION Status: Acute Current Visit: Yes (3) Unintentional weight loss SNOMED Code(s): 529149020 Code(s): R63.4 - ABNORMAL WEIGHT LOSS Status: Acute Current Visit: Yes (4) Seizures SNOMED Code(s): 96064236 Code(s): R56.9 - UNSPECIFIED CONVULSIONS Status: Acute Current Visit: Yes - Problem List Review Problem List Initiated/Reviewed/Updated: Yes - My Orders Last 24 Hours: My Active Orders 10/25/17 15:18 Chest w Cont [CT] Routine 10/25/17 15:20 Resuscitation Status Routine 10/25/17 16:14 Patient Status [ADT] Routine Dietary Supplements [RC] TIDMEALS Intake and Output [RC] QSHIFT Notify Provider Vital Signs [RC] ASDIRECTED Oxygen Therapy [RC] PRN RT Aerosol Therapy [RC] ASDIRECTED Up With Assistance [RC] ASDIRECTED VTE/DVT Education [RC] Per Unit Routine Vital Signs [RC] Q2H Acetaminophen [Tylenol] 650 mg PO Q4H PRN Albuterol [Proventil Neb Soln] 2.5 mg NEB Q4H PRN Docusate Sodium/Sennosides [Senna Plus] 1 tab PO BID PRN Ondansetron [Zofran ODT] 4 mg PO Q6H PRN Ondansetron [Zofran] 4 mg IV Q6H PRN Polyethylene Glycol 3350 [MiraLAX] 17 gm PO DAILY PRN Sodium Chloride 0.9% [Normal Saline] 1,000 ml IV ASDIRECTED 10/25/17 16:45 Transfer Patient (Change bed) [ADT] Routine Head wo Cont [CT] Routine 10/25/17 17:34 LORazepam [Ativan] 1 mg IVPUSH Q1H PRN 10/25/17 18:00 Piperacillin/Tazobactam/Dext [Zosyn in Dextrose Iso-Osmotic 3.375 GM] 3.375 gm Premix Bag 1 bag IV Q6H levETIRAcetam [Keppra] 500 mg Sodium Chloride 0.9% [Normal Saline] 100 ml IV Q12H 10/25/17 19:27 CULTURE RESPIRATORY + SMEAR [RM] Routine 10/25/17 Dinner Regular Diet [DIET] 10/26/17 07:00 Levofloxacin/Dextrose 5%-Water [Levaquin in D5W 750 MG/150 ML] 750 mg Premix Bag 1 bag IV Q24H 10/26/17 09:00 Enoxaparin [Lovenox] 40 mg SUBCUT DAILY 10/26/17 09:03 TSH ULTRASENSITIVE [CHEM] Routine 10/26/17 09:15 Sodium Chloride 0.9% [Normal Saline] 500 ml IV ASDIRECTED 10/26/17 21:00 levETIRAcetam [Keppra] 750 mg PO BID 10/27/17 05:00 CBC W/O DIFF,HEMOGRAM [HEME] Timed (1) COMPREHENSIVE METABOLIC PN,CMP [CHEM] Timed - Plan Plan:: ASSESSMENT AND PLAN - Right upper lobe pneumonia with cavitation - complicated by anorexia and nausea. Febrile overnight and low-grade fever this morning. CT scan showed large area of consolidation with cavitation in the center in the right upper lobe. Gram stain of the sputum sample revealed lung chains of gram-positive cocci. White blood cell count stable compared to yesterday. Clinically the patient looks better. He is requiring supplemental oxygen. Lactic acid level normalized. -Antibiotic coverage with levofloxacin and Pip/Tazo -IV fluids -Supplement oxygen if needed -Nebulizers if needed -Follow-up sputum culture Seizures - patient had several additional episodes of seizure-like activity without loss of consciousness and very short postictal period. No history of seizures but he has had a previous traumatic brain injury and craniotomy. Head CT was negative. -Keppra 750 mg every 12 hours -Lorazepam as needed for aborting seizures Maintenance issues - - DVT prophylaxis - enoxaparin - GI prophylaxis - H2 zahida - Nutrition - regular diet as tolerated Disposition - anticipate discharge to home after the hospital stay Primary care physician - Dr Praful Martin M.D.
[2017-10-26] MEDS ORDERED: Sodium Chloride 0.9% 500 ML IV ONE ×2 (09:15→09:30)
[2017-10-26] MEDS ORDERED: levETIRAcetam 250 MG Tab PO ONE (10:00)
[2017-10-26] MEDS: Sodium Chloride 0.9% 1,000 ML IV SCH ×2 (10:32→20:37)
[2017-10-26] MEDS ORDERED: Sodium Chloride 0.9% 500 ML IV STA (19:31)
[2017-10-26] MEDS: levETIRAcetam 250 MG Tab PO SCH (20:37)
[2017-10-26] MEDS: Acetaminophen 325 MG Tab PO PRN (23:22)
[2017-10-27] MEDS: Piperacillin/Tazobactam/Dext 3.375 GM in Premix Bag 1 BAG IV SCH ×3 (05:03→17:46)
[2017-10-27] MEDS: Sodium Chloride 0.9% 1,000 ML IV SCH ×3 (05:03→19:32)
[2017-10-27] MEDS ORDERED: Levofloxacin/Dextrose 5%-Water 750 MG in Premix Bag 1 BAG IV SCH (06:00)
[2017-10-27] MEDS: levETIRAcetam 250 MG Tab PO SCH (09:00)
[2017-10-27] MEDS: Enoxaparin 40 MG/0.4 ML Syringe SUBCUT SCH (09:07)
[2017-10-27] MEDS: Doxycycline 100 MG in Sodium Chloride 0.9% 100 ML IV SCH ×2 (09:08→20:42)
--- NOTE | 2017-10-27 09:24 | PCM.PN ---
- General Info Date of Service: 10/27/17 Functional Status: Reports: Pain Controlled, Tolerating Diet - Review of Systems General: Reports: Fever Pulmonary: Reports: Shortness of Breath, Cough, Sputum Systems Review Comment:: There were no acute events overnight. Patient did have one additional episode of seizure activity yesterday evening but has not had any overnight. He is off supplemental oxygen as of this morning. Heart rate has crept up into the 130s again. He feels much better today with less shortness of breath. Cough has been productive for some sputum. No complaints of chest pain or abdominal pain. White blood cell count is stable at 17,000. Cultures are all still pending. - Patient Data Vitals - Most Recent: Last Vital Signs Temp 36.4 C 10/27/17 09:00 Pulse 129 H 10/27/17 09:00 Resp 20 10/27/17 09:00 BP 121/78 10/27/17 09:00 Pulse Ox 96 10/27/17 09:00 Weight - Most Recent: 65.771 kg I&O - Last 24 Hours: Intake & Output 10/26/17 10/27/17 10/27/17 22:59 06:59 14:59 Intake Total 2770 1174 Output Total 1050 2275 Balance 1720 -1101 Lab Results Last 24 Hours: Laboratory Results - last 24 hr 10/26/17 10/27/17 10/27/17 Range/Units 09:03 05:00 05:00 WBC 17.5 H (4.5-11.0) K/uL RBC 3.37 L (4.30-5.90) M/uL Hgb 10.3 L (12.0-15.0) g/dL Hct 31.8 L (40.0-54.0) % MCV 94 (80-98) fL MCH 31 (27-31) pg MCHC 32 (32-36) % Plt Count 547 H (150-400) K/uL Sodium 137 L (140-148) mmol/L Potassium 4.1 (3.6-5.2) mmol/L Chloride 100 (100-108) mmol/L Carbon Dioxide 33 H (21-32) mmol/L Anion Gap 8.1 (5.0-14.0) mmol/L BUN 11 (7-18) mg/dL Creatinine 0.9 (0.8-1.3) mg/dL Est Cr Clr Drug Dosing 78.15 mL/min Estimated GFR (MDRD) > 60 (>60) Glucose 108 H (74-106) mg/dL Calcium 8.2 L (8.5-10.1) mg/dL Total Bilirubin 0.4 (0.2-1.0) mg/dL AST 42 H (15-37) U/L ALT 40 (12-78) U/L Alkaline Phosphatase 68 (46-116) U/L Total Protein 5.9 L (6.4-8.2) g/dL Albumin 1.3 L (3.4-5.0) g/dL Globulin 4.6 H (2.3-3.5) g/dL Albumin/Globulin Ratio 0.3 L (1.2-2.2) TSH, Ultra Sensitive 1.730 (0.358-3.740) uIU/mL Ricardo Results Last 24 Hours: Microbiology 10/25/17 12:45 Aerobic Blood Culture - Preliminary Blood - Venous NO GROWTH AFTER 1 DAY Anaerobic Blood Culture - Preliminary NO GROWTH AFTER 1 DAY 10/25/17 12:45 Aerobic Blood Culture - Preliminary Blood - Venous - Lab Draw NO GROWTH AFTER 1 DAY Anaerobic Blood Culture - Preliminary NO GROWTH AFTER 1 DAY Med Orders - Current: Current Medications Acetaminophen (Tylenol) 650 mg PO Q4H PRN PRN Reason: Pain (Mild 1-3)/fever Last Admin: 10/26/17 23:22 Dose: 650 mg Albuterol (Proventil Neb Soln) 2.5 mg NEB Q4H PRN PRN Reason: Shortness Of Breath/wheezing Enoxaparin Sodium (Lovenox) 40 mg SUBCUT DAILY [facility] Last Admin: 10/27/17 09:07 Dose: 40 mg Sodium Chloride (Normal Saline) 1,000 mls @ 125 mls/hr IV ASDIRECTED [facility] Last Admin: 10/27/17 05:03 Dose: 125 mls/hr Piperacillin/Tazobactam/ (Dextrose 3.375 gm/ Premix) 50 mls @ 100 mls/hr IV Q6H [facility] Last Admin: 10/27/17 05:03 Dose: 100 mls/hr Doxycycline Hyclate 100 mg/ (Sodium Chloride) 100 mls @ 100 mls/hr IV Q12H [facility] Last Admin: 10/27/17 09:08 Dose: 100 mls/hr Levetiracetam (Keppra) 750 mg PO BID [facility] Stop: 10/27/17 12:00 Last Admin: 10/27/17 09:00 Dose: 750 mg Lorazepam (Ativan) 1 mg IVPUSH Q1H PRN PRN Reason: Seizures Last Admin: 10/26/17 17:23 Dose: 1 mg Ondansetron HCl (Zofran Odt) 4 mg PO Q6H PRN PRN Reason: Nausea able to take PO Ondansetron HCl (Zofran) 4 mg IV Q6H PRN PRN Reason: Nausea/Vomiting Polyethylene Glycol (Miralax) 17 gm PO DAILY PRN PRN Reason: Constipation Senna/Docusate Sodium (Senna Plus) 1 tab PO BID PRN PRN Reason: Constipation Sodium Chloride (Saline Flush) 10 ml FLUSH ASDIRECTED PRN PRN Reason: Keep Vein Open Last Admin: 10/25/17 15:38 Dose: 10 ml Discontinued Medications Sodium Chloride (Normal Saline) 1,000 mls @ 500 mls/hr IV ASDIRECTED [facility] Last Admin: 10/25/17 12:57 Dose: 500 mls/hr Sodium Chloride (Normal Saline) 100 mls @ 3 mls/sec IV ASDIRECTED [facility] Last Admin: 10/25/17 15:41 Dose: 3 mls/sec Ceftriaxone Sodium 2 gm/ (Sodium Chloride) 50 mls @ 100 mls/hr IV Q24H [facility] Levofloxacin/Dextrose 750 mg/ (Premix) 150 mls @ 100 mls/hr IV Q24H [facility] Last Admin: 10/26/17 07:14 Dose: 100 mls/hr Potassium Chloride 20 meq/Lidocaine HCl 2 ml/ Sodium Chloride 112 mls @ 50 mls/ hr IV Q2H [facility] Stop: 10/25/17 20:59 Last Admin: 10/25/17 19:50 Dose: 50 mls/hr Levetiracetam 500 mg/ Sodium (Chloride) 105 mls @ 400 mls/hr IV Q12H [facility] Last Admin: 10/26/17 05:34 Dose: 400 mls/hr Sodium Chloride (Normal Saline) 500 mls @ 500 mls/hr IV BOLUS ONE Stop: 10/26/17 10:29 Last Admin: 10/26/17 09:26 Dose: 500 mls/hr Levofloxacin/Dextrose 750 mg/ (Premix) 150 mls @ 100 mls/hr IV Q24H KATHY Sodium Chloride (Normal Saline) 500 mls @ 500 mls/hr IV BOLUS STA Stop: 10/26/17 20:30 Last Admin: 10/26/17 19:37 Dose: 500 mls/hr Iopamidol (Isovue-300 (61%)) 100 ml IV . DIRECTED PRN PRN Reason: RADIOLOGY EXAM Stop: 10/26/17 15:35 Last Admin: 10/25/17 15:41 Dose: 100 ml Levetiracetam (Keppra) 250 mg PO ONETIME ONE Stop: 10/26/17 10:01 Last Admin: 10/26/17 09:55 Dose: 250 mg Lorazepam (Ativan) Confirm Administered Dose 2 mg .ROUTE .STK-MED ONE Stop: 10/25/17 16:36 Last Admin: 10/25/17 17:08 Dose: Not Given Lorazepam (Ativan) 1 mg IVPUSH ONETIME ONE Stop: 10/25/17 16:47 Last Admin: 10/25/17 16:50 Dose: 1 mg - Exam Quality Assessment: No: Supplemental Oxygen General: Alert, Oriented, Cooperative, No Acute Distress Lungs: Clear to Auscultation, Normal Respiratory Effort Cardiovascular: Regular Rhythm, Tachycardia GI/Abdominal Exam: Soft, No Distention Extremities: Pedal Edema (trace bilateral ankle edema) Skin: Warm, Dry Psy/Mental Status: Alert, Normal Affect - Problem List & Annotations (1) Right upper lobe pneumonia SNOMED Code(s): 813375825 Code(s): J18.1 - LOBAR PNEUMONIA, UNSPECIFIED ORGANISM Status: Acute Current Visit: No Qualifiers: Pneumonia type: due to unspecified organism Qualified Code(s): J18.1 - Lobar pneumonia, unspecified organism (2) Dehydration SNOMED Code(s): 22592702 Code(s): E86.0 - DEHYDRATION Status: Acute Current Visit: Yes (3) Unintentional weight loss SNOMED Code(s): 257005672 Code(s): R63.4 - ABNORMAL WEIGHT LOSS Status: Acute Current Visit: Yes (4) Seizures SNOMED Code(s): 09074436 Code(s): R56.9 - UNSPECIFIED CONVULSIONS Status: Acute Current Visit: Yes - Problem List Review Problem List Initiated/Reviewed/Updated: Yes - My Orders Last 24 Hours: My Active Orders 10/26/17 09:00 Enoxaparin [Lovenox] 40 mg SUBCUT DAILY 10/26/17 21:00 levETIRAcetam [Keppra] 750 mg PO BID 10/27/17 09:00 Doxycycline [Vibramycin] 100 mg Sodium Chloride 0.9% [Normal Saline] 100 ml IV Q12H 10/27/17 09:30 Sodium Chloride 0.9% [Normal Saline] 500 ml IV ASDIRECTED 10/28/17 05:00 BASIC METABOLIC PANEL,BMP [CHEM] Timed CBC W/O DIFF,HEMOGRAM [HEME] Timed (1) - Plan Plan:: ASSESSMENT AND PLAN - Right upper lobe pneumonia with cavitation - complicated by anorexia and nausea. Still having fevers but otherwise clinically improving. White blood cell count stable but oxygenation is improving. Appetite and energy are improving. Still having intermittent tachycardia that does respond to IV fluids. -Antibiotic coverage with doxycycline and Pip/Tazo -Continue IV fluids -Supplement oxygen if needed -Nebulizers if needed -Follow-up sputum culture Seizures - patient had several additional episodes of seizure-like activity without loss of consciousness and very short postictal period. No history of seizures but he has had a previous traumatic brain injury and craniotomy. Head CT was negative. I suspect the levofloxacin was contributing and this has been discontinued. Plan to discontinue his antiepileptic medication as well now that the levofloxacin is out of his system. -Discontinue Keppra -Lorazepam as needed for aborting seizures Maintenance issues - - DVT prophylaxis - enoxaparin - GI prophylaxis - H2 zahida - Nutrition - regular diet as tolerated Disposition - anticipate discharge to home after the hospital stay Primary care physician - Dr Praful Martin M.D.
[2017-10-27] MEDS ORDERED: Sodium Chloride 0.9% 500 ML IV ONE (09:30)
[2017-10-27] MEDS: Lactobacillus Rhamnosus GG (Probiotic) Cap PO SCH ×2 (10:26→20:41)
[2017-10-27] MEDS: Acetaminophen 325 MG Tab PO PRN (10:55)
[2017-10-27] MEDS: Metoprolol Tartrate 25 MG Tab PO SCH ×2 (12:02→20:41)
[2017-10-28] MEDS: Piperacillin/Tazobactam/Dext 3.375 GM in Premix Bag 1 BAG IV SCH ×5 (00:17→23:23)
[2017-10-28] MEDS: Acetaminophen 325 MG Tab PO PRN ×3 (01:43→21:05)
[2017-10-28] MEDS ORDERED: Sodium Chloride 0.9% 500 ML IV ONE (02:49)
[2017-10-28] MEDS: Sodium Chloride 0.9% 1,000 ML IV SCH (05:41)
[2017-10-28] MEDS: Doxycycline 100 MG in Sodium Chloride 0.9% 100 ML IV SCH ×2 (08:04→20:48)
[2017-10-28] MEDS: Enoxaparin 40 MG/0.4 ML Syringe SUBCUT SCH (08:04)
[2017-10-28] MEDS: Lactobacillus Rhamnosus GG (Probiotic) Cap PO SCH ×2 (08:05→20:47)
--- NOTE | 2017-10-28 09:08 | PCM.PN ---
- General Info Date of Service: 10/28/17 Subjective Update: This patient has remained relatively stable since yesterday, continues to experience intermittent sinus tachycardia. Blood pressures have continued to trend somewhat low but he has not had overt hypotension. Appetite seems to be improving and saturations have been adequate with supplemental oxygen. He did experience recurrent temperature elevation during the night, white blood cell count has improved since yesterday. - Review of Systems General: Reports: Fever, Weakness, Chills Pulmonary: Reports: Shortness of Breath. Denies: Cough, Hemoptysis, Wheezing Cardiovascular: Reports: Dyspnea on Exertion, Edema. Denies: Chest Pain, Palpitations, Orthopnea, PND Gastrointestinal: Reports: No Symptoms - Patient Data Vitals - Most Recent: Last Vital Signs Temp 97.1 F 10/28/17 07:29 Pulse 112 H 10/28/17 07:29 Resp 20 10/28/17 07:29 BP 107/60 10/28/17 07:29 Pulse Ox 99 10/28/17 07:29 Weight - Most Recent: 146 lb 12.787 oz I&O - Last 24 Hours: Intake & Output 10/27/17 10/28/17 10/28/17 22:59 06:59 14:59 Intake Total 1694 2983 Output Total 1150 1350 Balance 544 1633 Lab Results Last 24 Hours: Laboratory Results - last 24 hr 10/28/17 10/28/17 Range/Units 04:37 04:37 WBC 15.4 H (4.5-11.0) K/uL RBC 2.87 L (4.30-5.90) M/uL Hgb 8.6 L (12.0-15.0) g/dL Hct 27.2 L (40.0-54.0) % MCV 95 (80-98) fL MCH 30 (27-31) pg MCHC 32 (32-36) % Plt Count 507 H (150-400) K/uL Sodium 135 L (140-148) mmol/L Potassium 3.8 (3.6-5.2) mmol/L Chloride 99 L (100-108) mmol/L Carbon Dioxide 28 (21-32) mmol/L Anion Gap 11.8 (5.0-14.0) mmol/L BUN 10 (7-18) mg/dL Creatinine 0.9 (0.8-1.3) mg/dL Est Cr Clr Drug Dosing 78.15 mL/min Estimated GFR (MDRD) > 60 (>60) Glucose 194 H (74-106) mg/dL Calcium 7.8 L (8.5-10.1) mg/dL Ricardo Results Last 24 Hours: Microbiology 10/25/17 19:27 Gram Stain - Final Sputum - Expectorated Respiratory Culture - Final 10/25/17 12:45 Aerobic Blood Culture - Preliminary Blood - Venous NO GROWTH AFTER 2 DAYS Anaerobic Blood Culture - Preliminary NO GROWTH AFTER 2 DAYS 10/25/17 12:45 Aerobic Blood Culture - Preliminary Blood - Venous - Lab Draw NO GROWTH AFTER 2 DAYS Anaerobic Blood Culture - Preliminary NO GROWTH AFTER 2 DAYS Med Orders - Current: Current Medications Acetaminophen (Tylenol) 650 mg PO Q4H PRN PRN Reason: Pain (Mild 1-3)/fever Last Admin: 10/28/17 01:43 Dose: 650 mg Albuterol (Proventil Neb Soln) 2.5 mg NEB Q4H PRN PRN Reason: Shortness Of Breath/wheezing Enoxaparin Sodium (Lovenox) 40 mg SUBCUT DAILY [facility] Last Admin: 10/28/17 08:04 Dose: 40 mg Piperacillin/Tazobactam/ (Dextrose 3.375 gm/ Premix) 50 mls @ 100 mls/hr IV Q6H [facility] Last Admin: 10/28/17 05:05 Dose: 100 mls/hr Doxycycline Hyclate 100 mg/ (Sodium Chloride) 100 mls @ 100 mls/hr IV Q12H [facility] Last Admin: 10/28/17 08:04 Dose: 100 mls/hr Lactobacillus Rhamnosus (Culturelle) 1 cap PO BID [facility] Last Admin: 10/28/17 08:05 Dose: 1 cap Lorazepam (Ativan) 1 mg IVPUSH Q1H PRN PRN Reason: Seizures Last Admin: 10/26/17 17:23 Dose: 1 mg Metoprolol Tartrate (Lopressor) 25 mg PO Q6H [facility] Ondansetron HCl (Zofran Odt) 4 mg PO Q6H PRN PRN Reason: Nausea able to take PO Ondansetron HCl (Zofran) 4 mg IV Q6H PRN PRN Reason: Nausea/Vomiting Polyethylene Glycol (Miralax) 17 gm PO DAILY PRN PRN Reason: Constipation Senna/Docusate Sodium (Senna Plus) 1 tab PO BID PRN PRN Reason: Constipation Sodium Chloride (Saline Flush) 10 ml FLUSH ASDIRECTED PRN PRN Reason: Keep Vein Open Last Admin: 10/25/17 15:38 Dose: 10 ml Discontinued Medications Sodium Chloride (Normal Saline) 1,000 mls @ 500 mls/hr IV ASDIRECTED [facility] Last Admin: 10/25/17 12:57 Dose: 500 mls/hr Sodium Chloride (Normal Saline) 100 mls @ 3 mls/sec IV ASDIRECTED [facility] Last Admin: 10/25/17 15:41 Dose: 3 mls/sec Ceftriaxone Sodium 2 gm/ (Sodium Chloride) 50 mls @ 100 mls/hr IV Q24H [facility] Levofloxacin/Dextrose 750 mg/ (Premix) 150 mls @ 100 mls/hr IV Q24H [facility] Last Admin: 10/26/17 07:14 Dose: 100 mls/hr Potassium Chloride 20 meq/Lidocaine HCl 2 ml/ Sodium Chloride 112 mls @ 50 mls/ hr IV Q2H [facility]ATHY Stop: 10/25/17 20:59 Last Admin: 10/25/17 19:50 Dose: 50 mls/hr Sodium Chloride (Normal Saline) 1,000 mls @ 125 mls/hr IV ASDIRECTED [facility] Last Admin: 10/28/17 05:41 Dose: 125 mls/hr Levetiracetam 500 mg/ Sodium (Chloride) 105 mls @ 400 mls/hr IV Q12H [facility] Last Admin: 10/26/17 05:34 Dose: 400 mls/hr Sodium Chloride (Normal Saline) 500 mls @ 500 mls/hr IV BOLUS ONE Stop: 10/26/17 10:29 Last Admin: 10/26/17 09:26 Dose: 500 mls/hr Levofloxacin/Dextrose 750 mg/ (Premix) 150 mls @ 100 mls/hr IV Q24H [facility] Sodium Chloride (Normal Saline) 500 mls @ 500 mls/hr IV BOLUS STA Stop: 10/26/17 20:30 Last Admin: 10/26/17 19:37 Dose: 500 mls/hr Sodium Chloride (Normal Saline) 500 mls @ 500 mls/hr IV BOLUS ONE Stop: 10/27/17 10:29 Last Admin: 10/27/17 10:27 Dose: 500 mls/hr Sodium Chloride (Normal Saline) 500 mls @ 500 mls/hr IV .BOLUS ONE Stop: 10/28/17 03:48 Last Admin: 10/28/17 02:56 Dose: 500 mls/hr Iopamidol (Isovue-300 (61%)) 100 ml IV . DIRECTED PRN PRN Reason: RADIOLOGY EXAM Stop: 10/26/17 15:35 Last Admin: 10/25/17 15:41 Dose: 100 ml Levetiracetam (Keppra) 750 mg PO BID [facility] Stop: 10/27/17 12:00 Last Admin: 10/27/17 09:00 Dose: 750 mg Levetiracetam (Keppra) 250 mg PO ONETIME ONE Stop: 10/26/17 10:01 Last Admin: 10/26/17 09:55 Dose: 250 mg Lorazepam (Ativan) Confirm Administered Dose 2 mg .ROUTE .STK-MED ONE Stop: 10/25/17 16:36 Last Admin: 10/25/17 17:08 Dose: Not Given Lorazepam (Ativan) 1 mg IVPUSH ONETIME ONE Stop: 10/25/17 16:47 Last Admin: 10/25/17 16:50 Dose: 1 mg Metoprolol Tartrate (Lopressor) 25 mg PO BID [facility] Last Admin: 10/27/17 20:41 Dose: 25 mg - Exam Quality Assessment: Supplemental Oxygen, DVT Prophylaxis General: Alert, Oriented, Cooperative, No Acute Distress Lungs: Clear to Auscultation, Normal Respiratory Effort. No: Rales, Rhonchi, Wheezing Cardiovascular: Regular Rhythm, No Murmurs, Tachycardia. No: Irregular Rhythm, Bradycardia GI/Abdominal Exam: Soft, Non-Tender, No Organomegaly, No Distention Back Exam: Normal Inspection, Full Range of Motion Extremities: Non-Tender, Pedal Edema Skin: Warm, Dry, Intact - Problem List Review Problem List Initiated/Reviewed/Updated: Yes - My Orders Last 24 Hours: My Active Orders 10/28/17 09:02 Convert IV to Saline Lock [OM.PC] Routine 10/28/17 09:03 Echo Comp wo Cont [US] Urgent 10/28/17 09:15 Metoprolol Tartrate [Lopressor] 25 mg PO Q6H 10/29/17 05:00 BASIC METABOLIC PANEL,BMP [CHEM] Timed CBC WITH AUTO DIFF [HEME] Timed MAGNESIUM [CHEM] Timed - Plan Plan:: ASSESSMENT AND PLAN - Right upper lobe pneumonia with cavitation - complicated by anorexia and nausea. Recurrent temperature elevation last night, white blood cell count has improved. Oxygenation has been adequate with current level of supplemental oxygen. -Antibiotic coverage with doxycycline and Pip/Tazo -Saline lock IV -Supplement oxygen if needed -Nebulizers if needed -Follow-up sputum culture Sinus tachycardia-intermittently present now on current beta zahida therapy -Increase metoprolol to 25 mg by mouth every 6 hours -Echocardiogram to assess left ventricular function and valvular status Seizures - patient had several additional episodes of seizure-like activity without loss of consciousness and very short postictal period. No history of seizures but he has had a previous traumatic brain injury and craniotomy. Head CT was negative. I suspect the levofloxacin was contributing and this has been discontinued. Plan to discontinue his antiepileptic medication as well now that the levofloxacin is out of his system. -Discontinue Keppra -Lorazepam as needed for aborting seizures Maintenance issues - - DVT prophylaxis - enoxaparin - GI prophylaxis - H2 zahida - Nutrition - regular diet as tolerated Disposition - anticipate discharge to home after the hospital stay Primary care physician - Dr Basilio
[2017-10-28] MEDS: Metoprolol Tartrate 25 MG Tab PO SCH ×4 (09:23→20:47)
[2017-10-28] MEDS: levETIRAcetam 250 MG Tab PO SCH ×2 (19:51→20:48)
[2017-10-29] MEDS: Metoprolol Tartrate 25 MG Tab PO SCH ×4 (02:24→20:26)
[2017-10-29] MEDS: Acetaminophen 325 MG Tab PO PRN ×2 (03:30→10:54)
[2017-10-29] MEDS: Piperacillin/Tazobactam/Dext 3.375 GM in Premix Bag 1 BAG IV SCH ×4 (05:10→23:02)
[2017-10-29] MEDS: Lactobacillus Rhamnosus GG (Probiotic) Cap PO SCH ×2 (08:21→20:26)
[2017-10-29] MEDS: levETIRAcetam 250 MG Tab PO SCH ×2 (08:22→20:26)
[2017-10-29] MEDS: Enoxaparin 40 MG/0.4 ML Syringe SUBCUT SCH (08:23)
[2017-10-29] MEDS: Doxycycline 100 MG in Sodium Chloride 0.9% 100 ML IV SCH ×2 (08:25→20:23)
--- NOTE | 2017-10-29 09:50 | PCM.PN ---
- General Info Date of Service: 10/29/17 Subjective Update: Robbi is experienced 3 transient episodes of probable seizure disorder in the last 24 hours. This is been manifest as inability to speak for short period of time, 2-3 minutes. There've been no other associated neurologic symptoms. He otherwise is feeling slowly improved with better appetite and less shortness of breath. There has been no recurrent temperature elevations since yesterday and his white count has shown further improvement. Functional Status: Reports: Tolerating Diet, Ambulating, Urinating - Review of Systems General: Reports: Weakness. Denies: Fever, Chills Pulmonary: Reports: Shortness of Breath, Cough. Denies: Sputum, Hemoptysis, Wheezing Cardiovascular: Reports: Dyspnea on Exertion. Denies: Chest Pain, Palpitations , Orthopnea, PND, Edema Gastrointestinal: Reports: No Symptoms - Patient Data Vitals - Most Recent: Last Vital Signs Temp 97.4 F 10/29/17 07:00 Pulse 105 H 10/29/17 08:22 Resp 16 10/29/17 07:00 BP 107/65 10/29/17 08:22 Pulse Ox 100 10/29/17 07:00 Weight - Most Recent: 146 lb 12.787 oz I&O - Last 24 Hours: Intake & Output 10/28/17 10/29/17 10/29/17 22:59 06:59 14:59 Intake Total 1649 600 360 Output Total 400 1750 600 Balance 1249 -1150 -240 Lab Results Last 24 Hours: Laboratory Results - last 24 hr 10/29/17 10/29/17 Range/Units 04:45 04:45 WBC 12.5 H (4.5-11.0) K/uL RBC 3.23 L (4.30-5.90) M/uL Hgb 9.8 L (12.0-15.0) g/dL Hct 30.0 L (40.0-54.0) % MCV 93 (80-98) fL MCH 30 (27-31) pg MCHC 33 (32-36) % Plt Count 571 H (150-400) K/uL Neut % (Auto) 85 H (36-66) % Lymph % (Auto) 7 L (24-44) % [place] % (Auto) 7 H (2-6) % Eos % (Auto) 0 L (2-4) % Baso % (Auto) 1 (0-1) % Sodium 137 L (140-148) mmol/L Potassium 3.7 (3.6-5.2) mmol/L Chloride 100 (100-108) mmol/L Carbon Dioxide 31 (21-32) mmol/L Anion Gap 9.7 (5.0-14.0) mmol/L BUN 11 (7-18) mg/dL Creatinine 0.9 (0.8-1.3) mg/dL Est Cr Clr Drug Dosing 79.12 mL/min Estimated GFR (MDRD) > 60 (>60) Glucose 90 (74-106) mg/dL Calcium 8.5 (8.5-10.1) mg/dL Magnesium 1.6 L (1.8-2.4) mg/dL Ricardo Results Last 24 Hours: Microbiology 10/25/17 12:45 Aerobic Blood Culture - Preliminary Blood - Venous NO GROWTH AFTER 3 DAYS Anaerobic Blood Culture - Preliminary NO GROWTH AFTER 3 DAYS 10/25/17 12:45 Aerobic Blood Culture - Preliminary Blood - Venous - Lab Draw NO GROWTH AFTER 3 DAYS Anaerobic Blood Culture - Preliminary NO GROWTH AFTER 3 DAYS 10/25/17 19:27 Gram Stain - Final Sputum - Expectorated Respiratory Culture - Final Med Orders - Current: Current Medications Acetaminophen (Tylenol) 650 mg PO Q4H PRN PRN Reason: Pain (Mild 1-3)/fever Last Admin: 10/29/17 03:30 Dose: 650 mg Albuterol (Proventil Neb Soln) 2.5 mg NEB Q4H PRN PRN Reason: Shortness Of Breath/wheezing Enoxaparin Sodium (Lovenox) 40 mg SUBCUT DAILY [facility] Last Admin: 10/29/17 08:23 Dose: 40 mg Piperacillin/Tazobactam/ (Dextrose 3.375 gm/ Premix) 50 mls @ 100 mls/hr IV Q6H [facility] Last Admin: 10/29/17 05:10 Dose: 100 mls/hr Doxycycline Hyclate 100 mg/ (Sodium Chloride) 100 mls @ 100 mls/hr IV Q12H [facility] Last Admin: 10/29/17 08:25 Dose: 100 mls/hr Magnesium Sulfate 2 gm/ Premix 50 mls @ 25 mls/hr IV ONETIME ONE Stop: 10/29/17 11:59 Lactobacillus Rhamnosus (Culturelle) 1 cap PO BID [facility] Last Admin: 10/29/17 08:21 Dose: 1 cap Levetiracetam (Keppra) 750 mg PO BID [facility] Last Admin: 10/29/17 08:22 Dose: 750 mg Lorazepam (Ativan) 1 mg IVPUSH Q1H PRN PRN Reason: Seizures Last Admin: 10/26/17 17:23 Dose: 1 mg Magnesium Oxide (Magnesium Oxide) 400 mg PO BID [facility] Metoprolol Tartrate (Lopressor) 25 mg PO Q6H [facility] Last Admin: 10/29/17 08:22 Dose: 25 mg Ondansetron HCl (Zofran Odt) 4 mg PO Q6H PRN PRN Reason: Nausea able to take PO Ondansetron HCl (Zofran) 4 mg IV Q6H PRN PRN Reason: Nausea/Vomiting Polyethylene Glycol (Miralax) 17 gm PO DAILY PRN PRN Reason: Constipation Senna/Docusate Sodium (Senna Plus) 1 tab PO BID PRN PRN Reason: Constipation Sodium Chloride (Saline Flush) 10 ml FLUSH ASDIRECTED PRN PRN Reason: Keep Vein Open Last Admin: 10/25/17 15:38 Dose: 10 ml Discontinued Medications Sodium Chloride (Normal Saline) 1,000 mls @ 500 mls/hr IV ASDIRECTED [facility] Last Admin: 10/25/17 12:57 Dose: 500 mls/hr Sodium Chloride (Normal Saline) 100 mls @ 3 mls/sec IV ASDIRECTED [facility] Last Admin: 10/25/17 15:41 Dose: 3 mls/sec Ceftriaxone Sodium 2 gm/ (Sodium Chloride) 50 mls @ 100 mls/hr IV Q24H [facility] Levofloxacin/Dextrose 750 mg/ (Premix) 150 mls @ 100 mls/hr IV Q24H [facility] Last Admin: 10/26/17 07:14 Dose: 100 mls/hr Potassium Chloride 20 meq/Lidocaine HCl 2 ml/ Sodium Chloride 112 mls @ 50 mls/ hr IV Q2H [facility] Stop: 10/25/17 20:59 Last Admin: 10/25/17 19:50 Dose: 50 mls/hr Sodium Chloride (Normal Saline) 1,000 mls @ 125 mls/hr IV ASDIRECTED [facility] Last Admin: 10/28/17 05:41 Dose: 125 mls/hr Levetiracetam 500 mg/ Sodium (Chloride) 105 mls @ 400 mls/hr IV Q12H [facility] Last Admin: 10/26/17 05:34 Dose: 400 mls/hr Sodium Chloride (Normal Saline) 500 mls @ 500 mls/hr IV BOLUS ONE Stop: 10/26/17 10:29 Last Admin: 10/26/17 09:26 Dose: 500 mls/hr Levofloxacin/Dextrose 750 mg/ (Premix) 150 mls @ 100 mls/hr IV Q24H [facility] Sodium Chloride (Normal Saline) 500 mls @ 500 mls/hr IV BOLUS STA Stop: 10/26/17 20:30 Last Admin: 10/26/17 19:37 Dose: 500 mls/hr Sodium Chloride (Normal Saline) 500 mls @ 500 mls/hr IV BOLUS ONE Stop: 10/27/17 10:29 Last Admin: 10/27/17 10:27 Dose: 500 mls/hr Sodium Chloride (Normal Saline) 500 mls @ 500 mls/hr IV .BOLUS ONE Stop: 10/28/17 03:48 Last Admin: 10/28/17 02:56 Dose: 500 mls/hr Iopamidol (Isovue-300 (61%)) 100 ml IV . DIRECTED PRN PRN Reason: RADIOLOGY EXAM Stop: 10/26/17 15:35 Last Admin: 10/25/17 15:41 Dose: 100 ml Levetiracetam (Keppra) 750 mg PO BID [facility] Stop: 10/27/17 12:00 Last Admin: 10/27/17 09:00 Dose: 750 mg Levetiracetam (Keppra) 250 mg PO ONETIME ONE Stop: 10/26/17 10:01 Last Admin: 10/26/17 09:55 Dose: 250 mg Lorazepam (Ativan) Confirm Administered Dose 2 mg .ROUTE .STK-MED ONE Stop: 10/25/17 16:36 Last Admin: 10/25/17 17:08 Dose: Not Given Lorazepam (Ativan) 1 mg IVPUSH ONETIME ONE Stop: 10/25/17 16:47 Last Admin: 10/25/17 16:50 Dose: 1 mg Metoprolol Tartrate (Lopressor) 25 mg PO BID [facility] Last Admin: 10/28/17 10:02 Dose: Not Given - Exam Quality Assessment: Supplemental Oxygen, DVT Prophylaxis General: Alert, Oriented, Cooperative, No Acute Distress Lungs: Clear to Auscultation, Normal Respiratory Effort Cardiovascular: Regular Rate, Regular Rhythm, No Murmurs GI/Abdominal Exam: Soft, Non-Tender, No Organomegaly, No Distention Extremities: Non-Tender, No Pedal Edema Skin: Warm, Dry, Intact - Problem List Review Problem List Initiated/Reviewed/Updated: Yes - My Orders Last 24 Hours: My Active Orders 10/28/17 09:00 Metoprolol Tartrate [Lopressor] 25 mg PO Q6H 10/28/17 09:02 Convert IV to Saline Lock [OM.PC] Routine 10/28/17 09:03 Echo Comp wo Cont [US] Urgent 10/28/17 21:00 levETIRAcetam [Keppra] 750 mg PO BID 10/29/17 09:15 Magnesium Oxide 400 mg PO BID 10/29/17 09:39 Patient Status [ADT] Routine 10/29/17 09:41 Brain w wo Cont [MR] Urgent 10/29/17 10:00 Magnesium Sulfate/Water [Magnesium Sulfate 2 GM in Water 50 ML] 2 gm Premix Bag 1 bag IV ONETIME 10/30/17 05:00 BASIC METABOLIC PANEL,BMP [CHEM] Timed CBC WITH AUTO DIFF [HEME] Timed MAGNESIUM [CHEM] Timed - Plan Plan:: ASSESSMENT AND PLAN - Right upper lobe pneumonia with cavitation - further improvement over the last 24 hours, no significant temperature elevation and further improvement in white blood cell count. Shortness of breath seems to be slowly improving but he does continue to require supplemental oxygen. -Antibiotic coverage with doxycycline and Pip/Tazo -Saline lock IV -Supplement oxygen if needed -Nebulizers if needed -Follow-up sputum culture Sinus tachycardia-improved on beta zahida therapy, echocardiogram showed borderline low left ventricular function but no other significant abnormalities -Increase metoprolol to 25 mg by mouth every 6 hours Seizures - 3 recurrent episodes of probable seizure activity in the last 24 hours, limited seizures only involving speech. He has been restarted on Keppra and we'll plan to proceed with MRI today -Keppra 750 mg by mouth twice a day -MRI today with and without contrast -Outpatient EEG and follow-up with neurology -Lorazepam as needed for aborting seizures Maintenance issues - - DVT prophylaxis - enoxaparin - GI prophylaxis - H2 zahida - Nutrition - regular diet as tolerated Disposition - anticipate discharge to home after the hospital stay Primary care physician - Dr Basilio
[2017-10-29] MEDS ORDERED: Magnesium Sulfate/Water 2 GM in Premix Bag 1 BAG IV ONE (10:00)
[2017-10-29] MEDS: Magnesium Oxide 400 MG Tab PO SCH ×2 (10:31→20:26)
[2017-10-29] MEDS ORDERED: Iopamidol 612 MG/ML 100 ML Bottle IV PRN (10:51)
--- NOTE | 2017-10-29 13:00 | CT ---
Head w wo Cont CLINICAL HISTORY: Seizures COMPARISON: 10/25/2017 TECHNIQUE: Transverse scans were obtained from the base of the skull through the vertex before and fo llowing IV infusion of iodinated contrast on a spiral CT scanner. Auto dosage reduction and iterative reconstruction techniques employed. FINDINGS: Patient has had a previous right occipital craniotomy. 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 There is a moderate to mild of encephalomalacia involving the right the cere bellar hemisphere. There is a vague 1 cm low-attenuation focus in the right the posterior parietal lo be. There is no mass effect, hemorrhage, or extraaxial collection. The basal cisterns and sulci over the convexities are mildly prominent. The ventricles are normal for age. Post contrast images show no enhancing lesion. IMPRESSION: Patient is status post the right occipital craniotomy with underlying cerebellar encephal omalacia [place] 1 cm low-attenuation focus in the lovett-white matter junction of the right posterior parietal lo be similar to 10/25/2017. This is nonspecific. Prior CTs would be helpful to determine chronology. Mild age-related atrophy
[2017-10-29] MEDS: LORazepam 2 MG/ML SDV IVPUSH PRN (16:49)
[2017-10-30] MEDS: Acetaminophen 325 MG Tab PO PRN (00:57)
[2017-10-30] MEDS: Metoprolol Tartrate 25 MG Tab PO SCH ×4 (03:30→20:17)
[2017-10-30] MEDS: Piperacillin/Tazobactam/Dext 3.375 GM in Premix Bag 1 BAG IV SCH ×3 (06:16→18:07)
[2017-10-30] MEDS: levETIRAcetam 250 MG Tab PO SCH ×2 (08:15→20:17)
[2017-10-30] MEDS: Lactobacillus Rhamnosus GG (Probiotic) Cap PO SCH ×2 (08:16→20:17)
[2017-10-30] MEDS: Magnesium Oxide 400 MG Tab PO SCH ×2 (08:16→20:19)
[2017-10-30] MEDS: Enoxaparin 40 MG/0.4 ML Syringe SUBCUT SCH (08:18)
[2017-10-30] MEDS: Doxycycline 100 MG in Sodium Chloride 0.9% 100 ML IV SCH ×2 (09:19→20:25)
--- NOTE | 2017-10-30 12:17 | PCM.PN ---
- General Info Date of Service: 10/30/17 Subjective Update: Robbi has continued to have a few episodes of the aphasia, felt to be secondary to partial seizures. Episodes been less frequent, with only one this morning in the past 16 hours. He did have a slight temperature elevation and white blood cell count remains elevated at 13,000. Appetite seems to be improving as well as energy level, cough is nonproductive. Functional Status: Reports: Pain Controlled, Tolerating Diet, Urinating - Review of Systems General: Reports: Weakness Pulmonary: Reports: Shortness of Breath, Cough. Denies: Sputum, Hemoptysis, Wheezing Cardiovascular: Reports: Dyspnea on Exertion. Denies: Chest Pain, Palpitations , Orthopnea, PND, Edema, Lightheadedness Gastrointestinal: Reports: No Symptoms - Patient Data Vitals - Most Recent: Last Vital Signs Temp 99.6 F 10/30/17 10:31 Pulse 109 H 10/30/17 10:31 Resp 16 10/30/17 10:31 BP 127/82 10/30/17 10:31 Pulse Ox 97 10/30/17 10:31 Weight - Most Recent: 146 lb 12.787 oz I&O - Last 24 Hours: Intake & Output 10/29/17 10/30/17 10/30/17 22:59 06:59 14:59 Intake Total 287 485 100 Output Total 825 Balance -538 485 100 Lab Results Last 24 Hours: Laboratory Results - last 24 hr 10/30/17 10/30/17 Range/Units 04:32 04:32 WBC 13.3 H (4.5-11.0) K/uL RBC 3.11 L (4.30-5.90) M/uL Hgb 9.3 L (12.0-15.0) g/dL Hct 29.1 L (40.0-54.0) % MCV 94 (80-98) fL MCH 30 (27-31) pg MCHC 32 (32-36) % Plt Count 571 H (150-400) K/uL Neut % (Auto) 84 H (36-66) % Lymph % (Auto) 8 L (24-44) % [place] % (Auto) 8 H (2-6) % Eos % (Auto) 0 L (2-4) % Baso % (Auto) 1 (0-1) % Sodium 138 L (140-148) mmol/L Potassium 4.0 (3.6-5.2) mmol/L Chloride 101 (100-108) mmol/L Carbon Dioxide 34 H (21-32) mmol/L Anion Gap 7.0 (5.0-14.0) mmol/L BUN 11 (7-18) mg/dL Creatinine 0.9 (0.8-1.3) mg/dL Est Cr Clr Drug Dosing 79.12 mL/min Estimated GFR (MDRD) > 60 (>60) Glucose 84 (74-106) mg/dL Calcium 8.1 L (8.5-10.1) mg/dL Magnesium 2.0 (1.8-2.4) mg/dL Ricardo Results Last 24 Hours: Microbiology 10/25/17 12:45 Aerobic Blood Culture - Preliminary Blood - Venous NO GROWTH AFTER 4 DAYS Anaerobic Blood Culture - Preliminary NO GROWTH AFTER 4 DAYS 10/25/17 12:45 Aerobic Blood Culture - Preliminary Blood - Venous - Lab Draw NO GROWTH AFTER 4 DAYS Anaerobic Blood Culture - Preliminary NO GROWTH AFTER 4 DAYS Med Orders - Current: Current Medications Acetaminophen (Tylenol) 650 mg PO Q4H PRN PRN Reason: Pain (Mild 1-3)/fever Last Admin: 10/30/17 00:57 Dose: 650 mg Albuterol (Proventil Neb Soln) 2.5 mg NEB Q4H PRN PRN Reason: Shortness Of Breath/wheezing Enoxaparin Sodium (Lovenox) 40 mg SUBCUT DAILY [facility] Last Admin: 10/30/17 08:18 Dose: 40 mg Piperacillin/Tazobactam/ (Dextrose 3.375 gm/ Premix) 50 mls @ 100 mls/hr IV Q6H [facility] Last Admin: 10/30/17 06:16 Dose: 100 mls/hr Doxycycline Hyclate 100 mg/ (Sodium Chloride) 100 mls @ 100 mls/hr IV Q12H [facility] Last Admin: 10/30/17 09:19 Dose: 100 mls/hr Lactobacillus Rhamnosus (Culturelle) 1 cap PO BID [facility] Last Admin: 10/30/17 08:16 Dose: 1 cap Levetiracetam (Keppra) 750 mg PO BID [facility] Last Admin: 10/30/17 08:15 Dose: 750 mg Lorazepam (Ativan) 1 mg IVPUSH Q1H PRN PRN Reason: Seizures Last Admin: 10/29/17 16:49 Dose: 1 mg Magnesium Oxide (Magnesium Oxide) 400 mg PO BID [facility] Last Admin: 10/30/17 08:16 Dose: 400 mg Metoprolol Tartrate (Lopressor) 25 mg PO Q6H [facility] Last Admin: 10/30/17 08:17 Dose: 25 mg Ondansetron HCl (Zofran Odt) 4 mg PO Q6H PRN PRN Reason: Nausea able to take PO Ondansetron HCl (Zofran) 4 mg IV Q6H PRN PRN Reason: Nausea/Vomiting Polyethylene Glycol (Miralax) 17 gm PO DAILY PRN PRN Reason: Constipation Senna/Docusate Sodium (Senna Plus) 1 tab PO BID PRN PRN Reason: Constipation Sodium Chloride (Saline Flush) 10 ml FLUSH ASDIRECTED PRN PRN Reason: Keep Vein Open Last Admin: 10/25/17 15:38 Dose: 10 ml Discontinued Medications Sodium Chloride (Normal Saline) 1,000 mls @ 500 mls/hr IV ASDIRECTED [facility] Last Admin: 10/25/17 12:57 Dose: 500 mls/hr Sodium Chloride (Normal Saline) 100 mls @ 3 mls/sec IV ASDIRECTED [facility] Last Admin: 10/25/17 15:41 Dose: 3 mls/sec Ceftriaxone Sodium 2 gm/ (Sodium Chloride) 50 mls @ 100 mls/hr IV Q24H [facility] Levofloxacin/Dextrose 750 mg/ (Premix) 150 mls @ 100 mls/hr IV Q24H [facility] Last Admin: 10/26/17 07:14 Dose: 100 mls/hr Potassium Chloride 20 meq/Lidocaine HCl 2 ml/ Sodium Chloride 112 mls @ 50 mls/ hr IV Q2H [facility] Stop: 10/25/17 20:59 Last Admin: 10/25/17 19:50 Dose: 50 mls/hr Sodium Chloride (Normal Saline) 1,000 mls @ 125 mls/hr IV ASDIRECTED [facility] Last Admin: 10/28/17 05:41 Dose: 125 mls/hr Levetiracetam 500 mg/ Sodium (Chloride) 105 mls @ 400 mls/hr IV Q12H [facility] Last Admin: 10/26/17 05:34 Dose: 400 mls/hr Sodium Chloride (Normal Saline) 500 mls @ 500 mls/hr IV BOLUS ONE Stop: 10/26/17 10:29 Last Admin: 10/26/17 09:26 Dose: 500 mls/hr Levofloxacin/Dextrose 750 mg/ (Premix) 150 mls @ 100 mls/hr IV Q24H [facility] Sodium Chloride (Normal Saline) 500 mls @ 500 mls/hr IV BOLUS STA Stop: 10/26/17 20:30 Last Admin: 10/26/17 19:37 Dose: 500 mls/hr Sodium Chloride (Normal Saline) 500 mls @ 500 mls/hr IV BOLUS ONE Stop: 10/27/17 10:29 Last Admin: 10/27/17 10:27 Dose: 500 mls/hr Sodium Chloride (Normal Saline) 500 mls @ 500 mls/hr IV .BOLUS ONE Stop: 10/28/17 03:48 Last Admin: 10/28/17 02:56 Dose: 500 mls/hr Magnesium Sulfate 2 gm/ Premix 50 mls @ 25 mls/hr IV ONETIME ONE Stop: 10/29/17 11:59 Last Admin: 10/29/17 10:31 Dose: 25 mls/hr Iopamidol (Isovue-300 (61%)) 100 ml IV . DIRECTED PRN PRN Reason: RADIOLOGY EXAM Stop: 10/26/17 15:35 Last Admin: 10/25/17 15:41 Dose: 100 ml Iopamidol (Isovue-300 (61%)) 100 ml IV . DIRECTED PRN PRN Reason: RADIOLOGY EXAM Stop: 10/30/17 10:52 Last Admin: 10/29/17 12:04 Dose: 100 ml Levetiracetam (Keppra) 750 mg PO BID [facility] Stop: 10/27/17 12:00 Last Admin: 10/27/17 09:00 Dose: 750 mg Levetiracetam (Keppra) 250 mg PO ONETIME ONE Stop: 10/26/17 10:01 Last Admin: 10/26/17 09:55 Dose: 250 mg Lorazepam (Ativan) Confirm Administered Dose 2 mg .ROUTE .STK-MED ONE Stop: 10/25/17 16:36 Last Admin: 10/25/17 17:08 Dose: Not Given Lorazepam (Ativan) 1 mg IVPUSH ONETIME ONE Stop: 10/25/17 16:47 Last Admin: 10/25/17 16:50 Dose: 1 mg Metoprolol Tartrate (Lopressor) 25 mg PO BID [facility] Last Admin: 10/28/17 10:02 Dose: Not Given - Exam Quality Assessment: DVT Prophylaxis. No: Supplemental Oxygen General: Alert, Oriented, Cooperative, Mild Distress Lungs: Clear to Auscultation, Normal Respiratory Effort Cardiovascular: Regular Rate, Regular Rhythm, No Murmurs GI/Abdominal Exam: Soft, Non-Tender, No Organomegaly, No Distention Extremities: Non-Tender, No Pedal Edema Skin: Warm, Dry - Problem List Review Problem List Initiated/Reviewed/Updated: Yes - My Orders Last 24 Hours: My Active Orders 10/30/17 12:12 Dextromethorphan/guaiFENesin [Robitussin DM] 10 ml PO Q4H PRN 10/31/17 05:00 CBC WITH AUTO DIFF [HEME] Timed 10/31/17 08:00 Chest wo Cont [CT] Urgent - Plan Plan:: ASSESSMENT AND PLAN - Right upper lobe pneumonia with cavitation - further improvement over the last 24 hours, like temperature elevation and persistent modest elevation in white blood cell count. Oxygenation has improved and he is currently off of supplemental oxygen. Cultures have remained negative to this point. -Antibiotic coverage with doxycycline and Pip/Tazo -Follow-up CT scan of the chest tomorrow to reassess infiltrate and area of cavitation -Saline lock IV -Supplement oxygen if needed -Nebulizers if needed -Follow-up sputum culture Sinus tachycardia-improved on beta zahida therapy, echocardiogram showed borderline low left ventricular function but no other significant abnormalities -Continue metoprolol to 25 mg by mouth every 6 hours Seizures - episodes improved with current therapy on Keppra. I did explain to them that he will not be able to drive for at least a period of 3 months because of recent seizures with loss of consciousness. CT scan of the head with contrast showed no acute abnormalities. -Keppra 750 mg by mouth twice a day -Outpatient EEG and follow-up with neurology -Lorazepam as needed for aborting seizures Maintenance issues - - DVT prophylaxis - enoxaparin - GI prophylaxis - H2 zahida - Nutrition - regular diet as tolerated Disposition - anticipate discharge to home after the hospital stay Primary care physician - Dr Basilio
[2017-10-31] MEDS: Piperacillin/Tazobactam/Dext 3.375 GM in Premix Bag 1 BAG IV SCH ×5 (00:29→23:42)
[2017-10-31] MEDS: guaiFENesin/Dextromethorphan 100-10 MG/5 ML Soln 10 ML Cup PO PRN ×2 (01:07→22:23)
[2017-10-31] MEDS: Metoprolol Tartrate 25 MG Tab PO SCH ×2 (03:05→08:31)
[2017-10-31] MEDS: Enoxaparin 40 MG/0.4 ML Syringe SUBCUT SCH (08:31)
[2017-10-31] MEDS: levETIRAcetam 250 MG Tab PO SCH ×2 (08:31→22:21)
[2017-10-31] MEDS: Lactobacillus Rhamnosus GG (Probiotic) Cap PO SCH ×2 (08:31→22:18)
[2017-10-31] MEDS: Magnesium Oxide 400 MG Tab PO SCH ×2 (08:31→22:18)
--- NOTE | 2017-10-31 09:09 | CT ---
Chest wo Cont CLINICAL HISTORY: Follow-up pneumonia TECHNIQUE: Transverse scans were obtained from the thoracic inlet to the lung bases without contrast. Auto dosage reduction and iterative reconstruction techniques employed. COMPARISONS: 10/25/2017 FINDINGS: There is persistent dense infiltrate and consolidation in the right upper lobe. There is so me minimal decrease in amount of fluid loculations medially. There is no pleural effusion. The infil trate in the right lower lobe persists. There is underlying COPD. The heart and pulmonary vascularity appear normal. IMPRESSION: Minimal change in dense infiltrate and consolidation in the right upper lobe with a sligh t decrease in apparent fluid loculations along the medial aspect. Persistent right lower lobe infiltrate with minimal change since prior study No pleural fluid collections identified Underlying COPD
[2017-10-31] MEDS: Doxycycline 100 MG in Sodium Chloride 0.9% 100 ML IV SCH ×2 (09:32→22:23)
[2017-10-31] MEDS ORDERED: Metoprolol Tartrate 25 MG Tab PO ONE (10:00)
[2017-10-31] MEDS ORDERED: levETIRAcetam 250 MG Tab PO ONE (13:00)
--- NOTE | 2017-10-31 14:04 | PCM.PN ---
- General Info Date of Service: 10/31/17 Subjective Update: This patient has shown further improvement in his respiratory status, currently off of supplemental oxygen and has been afebrile over the past 24 hours. Cultures remain negative to this point including sputum cultures and blood cultures. White blood cell count has now normalized. He has had recurrent episodes of probable seizures, mainly involving difficulty with speech. Functional Status: Reports: Tolerating Diet, Ambulating, Urinating - Review of Systems General: Denies: Fever, Chills Pulmonary: Reports: No Symptoms Cardiovascular: Reports: No Symptoms Gastrointestinal: Reports: No Symptoms Neurological: Reports: Seizure - Patient Data Vitals - Most Recent: Last Vital Signs Temp 98.1 F 10/31/17 11:47 Pulse 90 10/31/17 13:47 Resp 12 10/31/17 11:47 BP 115/74 10/31/17 13:47 Pulse Ox 93 L 10/31/17 11:47 Weight - Most Recent: 146 lb 6.4 oz I&O - Last 24 Hours: Intake & Output 10/30/17 10/31/17 10/31/17 22:59 06:59 14:59 Intake Total 700 840 Output Total 1100 1300 250 Balance -400 -460 -250 Lab Results Last 24 Hours: Laboratory Results - last 24 hr 10/31/17 Range/Units 05:00 WBC 10.3 (4.5-11.0) K/uL RBC 2.99 L (4.30-5.90) M/uL Hgb 9.0 L (12.0-15.0) g/dL Hct 28.0 L (40.0-54.0) % MCV 94 (80-98) fL MCH 30 (27-31) pg MCHC 32 (32-36) % Plt Count 541 H (150-400) K/uL Neut % (Auto) Solutions Engineer Lymph % (Auto) Solutions Engineer [place] % (Auto) Solutions Engineer Eos % (Auto) Solutions Engineer Baso % (Auto) Solutions Engineer Add Manual Diff Yes Neutrophils % (Manual) 72 H (36-66) % Band Neutrophils % 5 (5-11) % Lymphocytes % (Manual) 9 L (24-44) % Monocytes % (Manual) 10 H (2-6) % Eosinophils % (Manual) 2 (2-4) % Metamyelocytes % 1 % Ricardo Results Last 24 Hours: Microbiology 10/25/17 12:45 Aerobic Blood Culture - Final Blood - Venous NO GROWTH AFTER 5 DAYS Anaerobic Blood Culture - Final NO GROWTH AFTER 5 DAYS 10/25/17 12:45 Aerobic Blood Culture - Final Blood - Venous - Lab Draw NO GROWTH AFTER 5 DAYS Anaerobic Blood Culture - Final NO GROWTH AFTER 5 DAYS Med Orders - Current: Current Medications Acetaminophen (Tylenol) 650 mg PO Q4H PRN PRN Reason: Pain (Mild 1-3)/fever Last Admin: 10/30/17 00:57 Dose: 650 mg Albuterol (Proventil Neb Soln) 2.5 mg NEB Q4H PRN PRN Reason: Shortness Of Breath/wheezing Enoxaparin Sodium (Lovenox) 40 mg SUBCUT DAILY [facility] Last Admin: 10/31/17 08:31 Dose: 40 mg Guaifenesin/Dextromethorphan (Robitussin Dm) 10 ml PO Q4H PRN PRN Reason: Cough Last Admin: 10/31/17 01:07 Dose: 10 ml Piperacillin/Tazobactam/ (Dextrose 3.375 gm/ Premix) 50 mls @ 100 mls/hr IV Q6H [facility] Last Admin: 10/31/17 13:48 Dose: 100 mls/hr Doxycycline Hyclate 100 mg/ (Sodium Chloride) 100 mls @ 100 mls/hr IV Q12H [facility] Last Admin: 10/31/17 09:32 Dose: 100 mls/hr Lactobacillus Rhamnosus (Culturelle) 1 cap PO BID [facility] Last Admin: 10/31/17 08:31 Dose: 1 cap Levetiracetam (Keppra) 1,000 mg PO BID [facility] Lorazepam (Ativan) 1 mg IVPUSH Q1H PRN PRN Reason: Seizures Last Admin: 10/29/17 16:49 Dose: 1 mg Magnesium Oxide (Magnesium Oxide) 400 mg PO BID [facility] Last Admin: 10/31/17 08:31 Dose: 400 mg Metoprolol Tartrate (Lopressor) 50 mg PO BID [facility] Ondansetron HCl (Zofran Odt) 4 mg PO Q6H PRN PRN Reason: Nausea able to take PO Ondansetron HCl (Zofran) 4 mg IV Q6H PRN PRN Reason: Nausea/Vomiting Polyethylene Glycol (Miralax) 17 gm PO DAILY PRN PRN Reason: Constipation Senna/Docusate Sodium (Senna Plus) 1 tab PO BID PRN PRN Reason: Constipation Sodium Chloride (Saline Flush) 10 ml FLUSH ASDIRECTED PRN PRN Reason: Keep Vein Open Last Admin: 10/25/17 15:38 Dose: 10 ml Discontinued Medications Sodium Chloride (Normal Saline) 1,000 mls @ 500 mls/hr IV ASDIRECTED [facility] Last Admin: 10/25/17 12:57 Dose: 500 mls/hr Sodium Chloride (Normal Saline) 100 mls @ 3 mls/sec IV ASDIRECTED [facility] Last Admin: 10/25/17 15:41 Dose: 3 mls/sec Ceftriaxone Sodium 2 gm/ (Sodium Chloride) 50 mls @ 100 mls/hr IV Q24H [facility] Levofloxacin/Dextrose 750 mg/ (Premix) 150 mls @ 100 mls/hr IV Q24H [facility] Last Admin: 10/26/17 07:14 Dose: 100 mls/hr Potassium Chloride 20 meq/Lidocaine HCl 2 ml/ Sodium Chloride 112 mls @ 50 mls/ hr IV Q2H [facility] Stop: 10/25/17 20:59 Last Admin: 10/25/17 19:50 Dose: 50 mls/hr Sodium Chloride (Normal Saline) 1,000 mls @ 125 mls/hr IV ASDIRECTED [facility] Last Admin: 10/28/17 05:41 Dose: 125 mls/hr Levetiracetam 500 mg/ Sodium (Chloride) 105 mls @ 400 mls/hr IV Q12H [facility] Last Admin: 10/26/17 05:34 Dose: 400 mls/hr Sodium Chloride (Normal Saline) 500 mls @ 500 mls/hr IV BOLUS ONE Stop: 10/26/17 10:29 Last Admin: 10/26/17 09:26 Dose: 500 mls/hr Levofloxacin/Dextrose 750 mg/ (Premix) 150 mls @ 100 mls/hr IV Q24H [facility] Sodium Chloride (Normal Saline) 500 mls @ 500 mls/hr IV BOLUS STA Stop: 10/26/17 20:30 Last Admin: 10/26/17 19:37 Dose: 500 mls/hr Sodium Chloride (Normal Saline) 500 mls @ 500 mls/hr IV BOLUS ONE Stop: 10/27/17 10:29 Last Admin: 10/27/17 10:27 Dose: 500 mls/hr Sodium Chloride (Normal Saline) 500 mls @ 500 mls/hr IV .BOLUS ONE Stop: 10/28/17 03:48 Last Admin: 10/28/17 02:56 Dose: 500 mls/hr Magnesium Sulfate 2 gm/ Premix 50 mls @ 25 mls/hr IV ONETIME ONE Stop: 10/29/17 11:59 Last Admin: 10/29/17 10:31 Dose: 25 mls/hr Iopamidol (Isovue-300 (61%)) 100 ml IV . DIRECTED PRN PRN Reason: RADIOLOGY EXAM Stop: 10/26/17 15:35 Last Admin: 10/25/17 15:41 Dose: 100 ml Iopamidol (Isovue-300 (61%)) 100 ml IV . DIRECTED PRN PRN Reason: RADIOLOGY EXAM Stop: 10/30/17 10:52 Last Admin: 10/29/17 12:04 Dose: 100 ml Levetiracetam (Keppra) 750 mg PO BID [facility] Stop: 10/27/17 12:00 Last Admin: 10/27/17 09:00 Dose: 750 mg Levetiracetam (Keppra) 250 mg PO ONETIME ONE Stop: 10/26/17 10:01 Last Admin: 10/26/17 09:55 Dose: 250 mg Levetiracetam (Keppra) 750 mg PO BID [facility] Last Admin: 10/31/17 08:31 Dose: 750 mg Levetiracetam (Keppra) 1,000 mg PO ONETIME ONE Stop: 10/31/17 13:01 Last Admin: 10/31/17 13:48 Dose: 1,000 mg Lorazepam (Ativan) Confirm Administered Dose 2 mg .ROUTE .STK-MED ONE Stop: 10/25/17 16:36 Last Admin: 10/25/17 17:08 Dose: Not Given Lorazepam (Ativan) 1 mg IVPUSH ONETIME ONE Stop: 10/25/17 16:47 Last Admin: 10/25/17 16:50 Dose: 1 mg Metoprolol Tartrate (Lopressor) 25 mg PO BID [facility] Last Admin: 10/28/17 10:02 Dose: Not Given Metoprolol Tartrate (Lopressor) 25 mg PO Q6H [facility] Last Admin: 10/31/17 08:31 Dose: 25 mg Metoprolol Tartrate (Lopressor) 25 mg PO ONETIME ONE Stop: 10/31/17 10:01 Last Admin: 10/31/17 13:47 Dose: 25 mg - Exam Quality Assessment: DVT Prophylaxis General: Alert, Oriented, Cooperative Lungs: Clear to Auscultation, Normal Respiratory Effort Cardiovascular: Regular Rate, Regular Rhythm, No Murmurs GI/Abdominal Exam: Soft, Non-Tender, No Organomegaly, No Distention Extremities: Non-Tender, No Pedal Edema - Problem List Review Problem List Initiated/Reviewed/Updated: Yes - My Orders Last 24 Hours: My Active Orders 10/31/17 21:00 Metoprolol Tartrate [Lopressor] 50 mg PO BID levETIRAcetam [Keppra] 1,000 mg PO BID 11/01/17 08:00 Brain w wo Cont [MR] Routine - Plan Plan:: ASSESSMENT AND PLAN - Right upper lobe pneumonia with cavitation - cultures remain negative, significantly improved. Oxygenation is now normal on room air, he has been afebrile, and white blood cell count has normalized. -Antibiotic coverage with doxycycline and Pip/Tazo -Plan for transition to oral antibiotic therapy tomorrow, Augmentin 3 weeks -Outpatient follow-up with pulmonology and CT scan in 3 weeks Sinus tachycardia-improved on beta zahida therapy, echocardiogram showed borderline low left ventricular function but no other significant abnormalities -Continue metoprolol to 50 mg by mouth every 12 hours Seizures - recurrent episodes of probable seizures over the past 24 hours -Single dose of Keppra 1000 mg by mouth now -Increase Keppra to 1000 mg by mouth twice a day -MRI of the brain with and without contrast -Outpatient EEG and follow-up with neurology -Lorazepam as needed for aborting seizures Maintenance issues - - DVT prophylaxis - enoxaparin - GI prophylaxis - H2 zahida - Nutrition - regular diet as tolerated Disposition - anticipate discharge to home after the hospital stay Primary care physician - Dr Basilio
[2017-10-31] MEDS: Metoprolol Tartrate 50 MG Tab PO SCH (22:18)
[2017-11-01] MEDS: Piperacillin/Tazobactam/Dext 3.375 GM in Premix Bag 1 BAG IV SCH (06:39)
[2017-11-01] MEDS ORDERED: Gadoteridol 279.3 MG/ML 15 ML SDV IV SCH (09:00)
[2017-11-01] MEDS: levETIRAcetam 250 MG Tab PO SCH ×2 (10:03→21:19)
[2017-11-01] MEDS: Lactobacillus Rhamnosus GG (Probiotic) Cap PO SCH ×2 (10:05→21:18)
[2017-11-01] MEDS: Magnesium Oxide 400 MG Tab PO SCH ×2 (10:05→21:20)
[2017-11-01] MEDS: Metoprolol Tartrate 50 MG Tab PO SCH ×2 (10:05→21:20)
[2017-11-01] MEDS: Enoxaparin 40 MG/0.4 ML Syringe SUBCUT SCH (10:06)
[2017-11-01] MEDS: Doxycycline 100 MG in Sodium Chloride 0.9% 100 ML IV SCH (10:11)
--- NOTE | 2017-11-01 10:20 | PCM.PN ---
- General Info Date of Service: 11/01/17 Subjective Update: This patient has continued to experience intermittent episodes of speech difficulty, felt to be secondary to probable partial seizure activity. Dose of Keppra was increased yesterday, to this point he has not noted significant improvement in symptoms. Respiratory status has remained stable, he is been afebrile, with adequate oxygenation on room air. Functional Status: Reports: Tolerating Diet, Ambulating, Urinating - Review of Systems General: Denies: Fever, Chills Pulmonary: Reports: No Symptoms Cardiovascular: Reports: No Symptoms Gastrointestinal: Reports: No Symptoms Neurological: Reports: Seizure - Patient Data Vitals - Most Recent: Last Vital Signs Temp 98.2 F 11/01/17 07:29 Pulse 103 H 11/01/17 10:05 Resp 16 11/01/17 07:29 BP 115/79 11/01/17 10:05 Pulse Ox 98 11/01/17 07:29 Weight - Most Recent: 146 lb 6.4 oz I&O - Last 24 Hours: Intake & Output 10/31/17 11/01/17 11/01/17 22:59 06:59 14:59 Intake Total 1390 50 480 Output Total 750 Balance 640 50 480 Med Orders - Current: Current Medications Acetaminophen (Tylenol) 650 mg PO Q4H PRN PRN Reason: Pain (Mild 1-3)/fever Last Admin: 10/30/17 00:57 Dose: 650 mg Albuterol (Proventil Neb Soln) 2.5 mg NEB Q4H PRN PRN Reason: Shortness Of Breath/wheezing Amoxicillin/Clavulanate Potassium (Augmentin 875 Mg/125 Mg) 1 tab PO Q12HR [facility] Enoxaparin Sodium (Lovenox) 40 mg SUBCUT DAILY [facility] Last Admin: 11/01/17 10:06 Dose: 40 mg Guaifenesin/Dextromethorphan (Robitussin Dm) 10 ml PO Q4H PRN PRN Reason: Cough Last Admin: 10/31/17 22:23 Dose: 10 ml Lactobacillus Rhamnosus (Culturelle) 1 cap PO BID [facility] Last Admin: 11/01/17 10:05 Dose: 1 cap Levetiracetam (Keppra) 1,000 mg PO BID [facility] Last Admin: 11/01/17 10:03 Dose: 1,000 mg Lorazepam (Ativan) 1 mg IVPUSH Q1H PRN PRN Reason: Seizures Last Admin: 10/29/17 16:49 Dose: 1 mg Magnesium Oxide (Magnesium Oxide) 400 mg PO BID [facility] Last Admin: 11/01/17 10:05 Dose: 400 mg Metoprolol Tartrate (Lopressor) 50 mg PO BID [facility] Last Admin: 11/01/17 10:05 Dose: 50 mg Ondansetron HCl (Zofran Odt) 4 mg PO Q6H PRN PRN Reason: Nausea able to take PO Ondansetron HCl (Zofran) 4 mg IV Q6H PRN PRN Reason: Nausea/Vomiting Polyethylene Glycol (Miralax) 17 gm PO DAILY PRN PRN Reason: Constipation Senna/Docusate Sodium (Senna Plus) 1 tab PO BID PRN PRN Reason: Constipation Sodium Chloride (Saline Flush) 10 ml FLUSH ASDIRECTED PRN PRN Reason: Keep Vein Open Last Admin: 10/25/17 15:38 Dose: 10 ml Discontinued Medications Gadoteridol (Prohance) 15 ml IV .A DIRECTED [facility] Stop: 11/01/17 10:00 Last Admin: 11/01/17 09:27 Dose: 15 ml Sodium Chloride (Normal Saline) 1,000 mls @ 500 mls/hr IV ASDIRECTED [facility] Last Admin: 10/25/17 12:57 Dose: 500 mls/hr Sodium Chloride (Normal Saline) 100 mls @ 3 mls/sec IV ASDIRECTED [facility] Last Admin: 10/25/17 15:41 Dose: 3 mls/sec Ceftriaxone Sodium 2 gm/ (Sodium Chloride) 50 mls @ 100 mls/hr IV Q24H [facility] Levofloxacin/Dextrose 750 mg/ (Premix) 150 mls @ 100 mls/hr IV Q24H [facility] Last Admin: 10/26/17 07:14 Dose: 100 mls/hr Potassium Chloride 20 meq/Lidocaine HCl 2 ml/ Sodium Chloride 112 mls @ 50 mls/ hr IV Q2H [facility] Stop: 10/25/17 20:59 Last Admin: 10/25/17 19:50 Dose: 50 mls/hr Sodium Chloride (Normal Saline) 1,000 mls @ 125 mls/hr IV ASDIRECTED [facility] Last Admin: 10/28/17 05:41 Dose: 125 mls/hr Piperacillin/Tazobactam/ (Dextrose 3.375 gm/ Premix) 50 mls @ 100 mls/hr IV Q6H [facility] Last Admin: 11/01/17 06:39 Dose: 100 mls/hr Levetiracetam 500 mg/ Sodium (Chloride) 105 mls @ 400 mls/hr IV Q12H [facility] Last Admin: 10/26/17 05:34 Dose: 400 mls/hr Sodium Chloride (Normal Saline) 500 mls @ 500 mls/hr IV BOLUS ONE Stop: 10/26/17 10:29 Last Admin: 10/26/17 09:26 Dose: 500 mls/hr Levofloxacin/Dextrose 750 mg/ (Premix) 150 mls @ 100 mls/hr IV Q24H [facility] Doxycycline Hyclate 100 mg/ (Sodium Chloride) 100 mls @ 100 mls/hr IV Q12H [facility] Last Admin: 10/31/17 22:23 Dose: 100 mls/hr Sodium Chloride (Normal Saline) 500 mls @ 500 mls/hr IV BOLUS STA Stop: 10/26/17 20:30 Last Admin: 10/26/17 19:37 Dose: 500 mls/hr Sodium Chloride (Normal Saline) 500 mls @ 500 mls/hr IV BOLUS ONE Stop: 10/27/17 10:29 Last Admin: 10/27/17 10:27 Dose: 500 mls/hr Sodium Chloride (Normal Saline) 500 mls @ 500 mls/hr IV .BOLUS ONE Stop: 10/28/17 03:48 Last Admin: 10/28/17 02:56 Dose: 500 mls/hr Magnesium Sulfate 2 gm/ Premix 50 mls @ 25 mls/hr IV ONETIME ONE Stop: 10/29/17 11:59 Last Admin: 10/29/17 10:31 Dose: 25 mls/hr Iopamidol (Isovue-300 (61%)) 100 ml IV . DIRECTED PRN PRN Reason: RADIOLOGY EXAM Stop: 10/26/17 15:35 Last Admin: 10/25/17 15:41 Dose: 100 ml Iopamidol (Isovue-300 (61%)) 100 ml IV . DIRECTED PRN PRN Reason: RADIOLOGY EXAM Stop: 10/30/17 10:52 Last Admin: 10/29/17 12:04 Dose: 100 ml Levetiracetam (Keppra) 750 mg PO BID [facility] Stop: 10/27/17 12:00 Last Admin: 10/27/17 09:00 Dose: 750 mg Levetiracetam (Keppra) 250 mg PO ONETIME ONE Stop: 10/26/17 10:01 Last Admin: 10/26/17 09:55 Dose: 250 mg Levetiracetam (Keppra) 750 mg PO BID [facility] Last Admin: 10/31/17 08:31 Dose: 750 mg Levetiracetam (Keppra) 1,000 mg PO ONETIME ONE Stop: 10/31/17 13:01 Last Admin: 10/31/17 13:48 Dose: 1,000 mg Lorazepam (Ativan) Confirm Administered Dose 2 mg .ROUTE .STK-MED ONE Stop: 10/25/17 16:36 Last Admin: 10/25/17 17:08 Dose: Not Given Lorazepam (Ativan) 1 mg IVPUSH ONETIME ONE Stop: 10/25/17 16:47 Last Admin: 10/25/17 16:50 Dose: 1 mg Metoprolol Tartrate (Lopressor) 25 mg PO BID [facility] Last Admin: 10/28/17 10:02 Dose: Not Given Metoprolol Tartrate (Lopressor) 25 mg PO Q6H [facility] Last Admin: 10/31/17 08:31 Dose: 25 mg Metoprolol Tartrate (Lopressor) 25 mg PO ONETIME ONE Stop: 10/31/17 10:01 Last Admin: 10/31/17 13:47 Dose: 25 mg - Exam Quality Assessment: DVT Prophylaxis. No: Supplemental Oxygen General: Alert, Oriented, Cooperative, No Acute Distress Lungs: Clear to Auscultation, Normal Respiratory Effort Cardiovascular: Regular Rate, Regular Rhythm, No Murmurs GI/Abdominal Exam: Soft, Non-Tender, No Organomegaly, No Distention Extremities: Non-Tender, No Pedal Edema Skin: Warm, Dry, Intact - Problem List Review Problem List Initiated/Reviewed/Updated: Yes - My Orders Last 24 Hours: My Active Orders 10/31/17 21:00 Metoprolol Tartrate [Lopressor] 50 mg PO BID levETIRAcetam [Keppra] 1,000 mg PO BID 11/01/17 08:00 Brain w wo Cont [MR] Routine 11/01/17 10:15 Amoxicillin/Clavulanate K [Augmentin 875 MG/125 MG] 1 tab PO Q12HR - Plan Plan:: ASSESSMENT AND PLAN - Right upper lobe pneumonia with cavitation - cultures remain negative, significantly improved. Oxygenation is now normal on room air, he has been afebrile, and white blood cell count has normalized. -Discontinue Antibiotic coverage with doxycycline and Pip/Tazo -Augmentin 875 one by mouth every 12 hours 3 weeks -Outpatient follow-up with pulmonology and CT scan in 3 weeks Sinus tachycardia-improved on beta zahida therapy, echocardiogram showed borderline low left ventricular function but no other significant abnormalities -Continue metoprolol to 50 mg by mouth every 12 hours Seizures - recurrent episodes of probable seizures has continued, despite increased dose of Keppra -Keppra 1000 mg by mouth twice a day -Consider trial of Tegretol if no improvement with Keppra increased dose over the next few days -MRI of the brain with and without contrast obtained this morning, results pending -Outpatient EEG and follow-up with neurology -Lorazepam as needed for aborting seizures Maintenance issues - - DVT prophylaxis - enoxaparin - GI prophylaxis - H2 zahida - Nutrition - regular diet as tolerated Disposition - anticipate discharge to home after the hospital stay Primary care physician - Dr Basilio
--- NOTE | 2017-11-01 10:24 | MR ---
Brain w wo Cont CLINICAL HISTORY: New onset seizures COMPARISON: CT brain 10/29/2017 TECHNIQUE: Multiple pulse sequences were obtained through the brain in the axial, coronal, and sagitt al planes both pre-and post IV contrast infusion gadolinium-based contrast. All images were obtained on a 1.5 Suzanna unit. FINDINGS: Diffusion images show no abnormal signal. There is no focal mass lesion. There is no hemorr chele, edema, or extraaxial collection. There are scattered focal T2 hyperintensities. The most promin ent is in the right parietal-occipital junction The basal cisterns and sulci over the convexities are generally prominent. There is a moderate-sized area of encephalomalacia involving the right cerebell ar hemisphere. There is also focal calvarial defect in the high right interparietal region. Patient h as a history of previous shunting. The ventricles are normal for age. Postcontrast images no enhancin g lesions.. IMPRESSION: Changes of right posterior craniotomy and right cerebellar encephalomalacia Mild generalized atrophic changes Chronic ischemic microvascular changes No focal enhancing lesions
[2017-11-01] MEDS: Amoxicillin/Clavulanate K 875-125 MG Tab PO SCH ×2 (11:25→21:17)
[2017-11-01] MEDS: guaiFENesin/Dextromethorphan 100-10 MG/5 ML Soln 10 ML Cup PO PRN ×2 (11:30→21:33)
[2017-11-01] MEDS: LORazepam 2 MG/ML SDV IVPUSH PRN (14:43)
[2017-11-02] MEDS: LORazepam 2 MG/ML SDV IVPUSH PRN ×2 (07:59→11:50)
[2017-11-02] MEDS: levETIRAcetam 250 MG Tab PO SCH (08:07)
[2017-11-02] MEDS: Metoprolol Tartrate 50 MG Tab PO SCH (09:14)
[2017-11-02] MEDS: Lactobacillus Rhamnosus GG (Probiotic) Cap PO SCH (09:14)
[2017-11-02] MEDS: Enoxaparin 40 MG/0.4 ML Syringe SUBCUT SCH (09:15)
[2017-11-02] MEDS: Magnesium Oxide 400 MG Tab PO SCH (09:15)
[2017-11-02] MEDS: Amoxicillin/Clavulanate K 875-125 MG Tab PO SCH (09:15)
[2017-11-02] MEDS ORDERED: carBAMazepine 200 MG Tab PO SCH (10:00)
--- NOTE | 2017-11-02 10:50 | PCM.DCSUM1 ---
Discharge Summary - Hospital Course Brief History: Mr. Blanca is a 62-year-old gentleman who was admitted through the emergency department with weakness and cough secondary to a large right lung ammonia and sepsis, having failed outpatient management. - Discharge Data Discharge Date: 11/02/17 Discharge Disposition: Home, Self-Care 01 Condition: Poor - Discharge Diagnosis/Problem(s) (1) Sepsis SNOMED Code(s): 55712939 ICD Code: A41.9 - SEPSIS, UNSPECIFIED ORGANISM Status: Acute Current Visit: Yes (2) Complex partial epilepsy SNOMED Code(s): 077324928 ICD Code: G40.209 - LOCAL-REL SYMPTC EPI W CMPLX PRT SEIZ,NOT NTRCT,W/O STAT EPI Status: Acute Current Visit: Yes Qualifiers: Epilepsy type: partial symptomatic (3) Dehydration SNOMED Code(s): 31222792 ICD Code: E86.0 - DEHYDRATION Status: Acute Current Visit: Yes (4) Pneumonia SNOMED Code(s): 398496800 ICD Code: J18.9 - PNEUMONIA, UNSPECIFIED ORGANISM Status: Acute Current Visit: Yes - Patient Summary/Data Hospital Course: Robbi was sent to the emergency room from the clinic where he presented with weakness, nausea, anorexia. He was receiving levofloxacin for treatment of a right upper lobe pneumonia. He reports that his cough seems a little better and does not feel particularly short of breath. He has not been eating pretty much all week and has had very little oral intake. He has nausea throughout much of the day. No complaints of abdominal pain or diarrhea. No complaints of chest pain. He has been very sleepy but not able to get any good rest. When he was seen in the clinic this afternoon a repeat chest x-ray was performed and there was concern that his infiltrate seemed larger and this prompted the trip to the emergency room. Workup in the emergency room has revealed hyponatremia and evidence for dehydration. His lactic acid level is elevated. He is not currently febrile. he will be admitted for management of a persistent right upper lobe pneumonia complicated by dehydration, sepsis and anorexia. Shortly after arrival to the floor the patient had an episode of staring with mostly left-sided tonic-clonic type movements/shaking. He was able to track during the episode but was not able to speak. The episode ended spontaneously before lorazepam could be administered. On admission he was given IV fluids for hydration and blood cultures were obtained. He was started on broad-spectrum IV antibiotic therapy with levofloxacin and Zosyn. Over the next 12 hours of hospitalization after admission he had 2-3 more episodes of partial complex seizure activity. He was started on Keppra 750 mg twice daily. Because of hypoxia he required supplemental oxygen. Evidence of sepsis resolved fairly quickly with normalization of his lactic acid level following hydration although he continued to experience sinus tachycardia with rates into the [address] scan of the head without contrast was obtained and showed no acute abnormalities but did document evidence of previous cerebellar hemorrhage. 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 Mahsa hole was created at that time and a catheter placed for drainage, patient gives a history that a shunt was placed and left in at that time but there is no evidence of a shunt noted on CT scan or MRI. After review medications it was felt likely that the levofloxacin had contributed to decreasing the seizure threshold and the medication was discontinued. For replacement of the levofloxacin he was started on doxycycline 100 mg IV every 12 hours. For a period of about 36 hours there was no evidence of seizure activity and the Keppra was discontinued. He slowly improved from a respiratory standpoint and by the time of discharge had been afebrile for several days with normalization of white blood cell count. Hypoxia resolved and he is on room air with no significant respiratory compromise at the time of transfer. CT scan had been obtained for further evaluation been pneumonia, he was noted to have a very dense right upper lobe infiltrate with developing cavitation. CT scan was repeated on October 31 and showed evidence of modest improvement of the infiltrate. Clinical course and CT scans were reviewed with the residential roofer helper motion picture narrator who recommended that the patient be treated with prolonged course of oral antibiotic therapy with Augmentin 875 twice daily for 3 weeks. After 3 weeks of therapy follow-up CT scan and consult with pulmonary medicine. Sinus tachycardia persisted during the early course of hospitalization , echocardiogram was obtained which did show a mild decrease in left ventricular function but no other significant abnormalities. He was started on beta zahida therapy metoprolol 50 mg twice daily and heart rate did come under better control. Unfortunately after initial improvement in seizure activity he began to experience recurrent episodes of speech difficulty. Initially these episodes would last 2-3 minutes and during that period of time he was noted to be a phasic but otherwise alert with no other neurologic deficits. Given the recurrent nature and relatively brief period of time that these were present it was felt that he was probably experiencing further seizure activity and he was restarted on Keppra [address] scan with contrast was obtained of the head and showed again evidence of old abnormalities related to his previous hemorrhage but no acute or new findings. There was no evidence of a shunt noted. MRI was obtained with and without contrast and again showed no acute abnormalities. He was given a oral bolus dose of Keppra 1000 mg in the dose was increased to 1000 mg twice daily but despite this he had progressive and more frequent difficulty with speech. As his symptoms progressed he was able to speak but had fairly garbled nonsensical speech pattern, the episodes became more frequent and lasted longer up to a few hours. The initial plan had been to give him a trial of Tegretol but because of progression of symptoms it was felt he should be transferred to tertiary care center for subspecialty evaluation and management including probable EEG. I reviewed his clinical course with the hospitalist on-call at [facility] in [facility] who is agreed to accept the patient in transfer for further evaluation. He will be transferred via [facility]. - Patient Instructions Diet: Usual Diet as Tolerated Activity: As Tolerated Other/Special Instructions: Patient will be transferred to [facility] in [facility] via [facility]. - Discharge Plan *PRESCRIPTION DRUG MONITORING PROGRAM REVIEWED*: Not Applicable *COPY OF PRESCRIPTION DRUG MONITORING REPORT IN PATIENT SILVESTRE: Not Applicable Home Medications: Home Meds Ascorbic Acid [Vitamin C] 1,000 mg PO DAILY 10/21/17 [History] Multivitamin [Multivitamins] 1 tab PO DAILY 10/21/17 [History] Ranitidine [Zantac] 75 mg PO DAILY PRN 10/21/17 [History] Amoxicillin/Clavulanate K [Augmentin 875-125 MG] 1 tab PO BID tablet 11/02/17 [ Rx] Enoxaparin [Lovenox] 40 mg SUBCUT DAILY syringe 11/02/17 [Rx] Lactobacillus Rhamnosus GG [Culturelle] 1 cap PO BID cap 11/02/17 [Rx] Magnesium Oxide 400 mg PO BID tablet 11/02/17 [Rx] Metoprolol Tartrate [Lopressor] 50 mg PO BID tablet 11/02/17 [Rx] levETIRAcetam [Keppra] 1,000 mg PO BID tablet 11/02/17 [Rx] Referrals: Juancarlos Basilio MD [Primary Care Provider] - 11/05/17 9:40 am - Discharge Summary/Plan Comment DC Time >30 min.: Yes (One hour of time was spent in arranging for transfer and discharge ) - Patient Data Vitals - Most Recent: Last Vital Signs Temp 97.6 F 11/02/17 07:18 Pulse 102 H 11/02/17 09:14 Resp 16 11/02/17 07:18 BP 100/59 L 11/02/17 09:14 Pulse Ox 100 11/02/17 07:18 Weight - Most Recent: 146 lb 6.4 oz I&O - Last 24 hours: Intake & Output 11/01/17 11/02/17 11/02/17 22:59 06:59 14:59 Intake Total 400 Output Total 100 200 300 Balance -100 200 -300 Med Orders - Current: Current Medications Acetaminophen (Tylenol) 650 mg PO Q4H PRN PRN Reason: Pain (Mild 1-3)/fever Last Admin: 10/30/17 00:57 Dose: 650 mg Albuterol (Proventil Neb Soln) 2.5 mg NEB Q4H PRN PRN Reason: Shortness Of Breath/wheezing Amoxicillin/Clavulanate Potassium (Augmentin 875 Mg/125 Mg) 1 tab PO BID [facility] Last Admin: 11/02/17 09:15 Dose: 1 tab Enoxaparin Sodium (Lovenox) 40 mg SUBCUT DAILY [facility] Last Admin: 11/02/17 09:15 Dose: 40 mg Guaifenesin/Dextromethorphan (Robitussin Dm) 10 ml PO Q4H PRN PRN Reason: Cough Last Admin: 11/01/17 21:33 Dose: 10 ml Lactobacillus Rhamnosus (Culturelle) 1 cap PO BID [facility] Last Admin: 11/02/17 09:14 Dose: 1 cap Levetiracetam (Keppra) 1,000 mg PO BID [facility] Lorazepam (Ativan) 1 mg IVPUSH Q1H PRN PRN Reason: Seizures Last Admin: 11/02/17 07:59 Dose: 1 mg Magnesium Oxide (Magnesium Oxide) 400 mg PO BID [facility] Last Admin: 11/02/17 09:15 Dose: 400 mg Metoprolol Tartrate (Lopressor) 50 mg PO BID [facility] Last Admin: 11/02/17 09:14 Dose: 50 mg Ondansetron HCl (Zofran Odt) 4 mg PO Q6H PRN PRN Reason: Nausea able to take PO Ondansetron HCl (Zofran) 4 mg IV Q6H PRN PRN Reason: Nausea/Vomiting Polyethylene Glycol (Miralax) 17 gm PO DAILY PRN PRN Reason: Constipation Senna/Docusate Sodium (Senna Plus) 1 tab PO BID PRN PRN Reason: Constipation Sodium Chloride (Saline Flush) 10 ml FLUSH ASDIRECTED PRN PRN Reason: Keep Vein Open Last Admin: 10/25/17 15:38 Dose: 10 ml Discontinued Medications Carbamazepine (Tegretol Tab) 200 mg PO TID [facility] Last Admin: 11/02/17 10:18 Dose: 200 mg Gadoteridol (Prohance) 15 ml IV .A DIRECTED [facility] Stop: 11/01/17 10:00 Last Admin: 11/01/17 09:27 Dose: 15 ml Sodium Chloride (Normal Saline) 1,000 mls @ 500 mls/hr IV ASDIRECTED [facility] Last Admin: 10/25/17 12:57 Dose: 500 mls/hr Sodium Chloride (Normal Saline) 100 mls @ 3 mls/sec IV ASDIRECTED [facility] Last Admin: 10/25/17 15:41 Dose: 3 mls/sec Ceftriaxone Sodium 2 gm/ (Sodium Chloride) 50 mls @ 100 mls/hr IV Q24H [facility] Levofloxacin/Dextrose 750 mg/ (Premix) 150 mls @ 100 mls/hr IV Q24H [facility] Last Admin: 10/26/17 07:14 Dose: 100 mls/hr Potassium Chloride 20 meq/Lidocaine HCl 2 ml/ Sodium Chloride 112 mls @ 50 mls/ hr IV Q2H [facility] Stop: 10/25/17 20:59 Last Admin: 10/25/17 19:50 Dose: 50 mls/hr Sodium Chloride (Normal Saline) 1,000 mls @ 125 mls/hr IV ASDIRECTED [facility] Last Admin: 10/28/17 05:41 Dose: 125 mls/hr Piperacillin/Tazobactam/ (Dextrose 3.375 gm/ Premix) 50 mls @ 100 mls/hr IV Q6H [facility] Last Admin: 11/01/17 06:39 Dose: 100 mls/hr Levetiracetam 500 mg/ Sodium (Chloride) 105 mls @ 400 mls/hr IV Q12H [facility] Last Admin: 10/26/17 05:34 Dose: 400 mls/hr Sodium Chloride (Normal Saline) 500 mls @ 500 mls/hr IV BOLUS ONE Stop: 10/26/17 10:29 Last Admin: 10/26/17 09:26 Dose: 500 mls/hr Levofloxacin/Dextrose 750 mg/ (Premix) 150 mls @ 100 mls/hr IV Q24H KATHY Doxycycline Hyclate 100 mg/ (Sodium Chloride) 100 mls @ 100 mls/hr IV Q12H [facility] Last Admin: 11/01/17 10:11 Dose: 100 mls/hr Sodium Chloride (Normal Saline) 500 mls @ 500 mls/hr IV BOLUS STA Stop: 10/26/17 20:30 Last Admin: 10/26/17 19:37 Dose: 500 mls/hr Sodium Chloride (Normal Saline) 500 mls @ 500 mls/hr IV BOLUS ONE Stop: 10/27/17 10:29 Last Admin: 10/27/17 10:27 Dose: 500 mls/hr Sodium Chloride (Normal Saline) 500 mls @ 500 mls/hr IV .BOLUS ONE Stop: 10/28/17 03:48 Last Admin: 10/28/17 02:56 Dose: 500 mls/hr Magnesium Sulfate 2 gm/ Premix 50 mls @ 25 mls/hr IV ONETIME ONE Stop: 10/29/17 11:59 Last Admin: 10/29/17 10:31 Dose: 25 mls/hr Iopamidol (Isovue-300 (61%)) 100 ml IV . DIRECTED PRN PRN Reason: RADIOLOGY EXAM Stop: 10/26/17 15:35 Last Admin: 10/25/17 15:41 Dose: 100 ml Iopamidol (Isovue-300 (61%)) 100 ml IV . DIRECTED PRN PRN Reason: RADIOLOGY EXAM Stop: 10/30/17 10:52 Last Admin: 10/29/17 12:04 Dose: 100 ml Levetiracetam (Keppra) 750 mg PO BID KATHY Stop: 10/27/17 12:00 Last Admin: 10/27/17 09:00 Dose: 750 mg Levetiracetam (Keppra) 250 mg PO ONETIME ONE Stop: 10/26/17 10:01 Last Admin: 10/26/17 09:55 Dose: 250 mg Levetiracetam (Keppra) 750 mg PO BID [facility] Last Admin: 10/31/17 08:31 Dose: 750 mg Levetiracetam (Keppra) 1,000 mg PO ONETIME ONE Stop: 10/31/17 13:01 Last Admin: 10/31/17 13:48 Dose: 1,000 mg Levetiracetam (Keppra) 1,000 mg PO BID [facility] Last Admin: 11/02/17 08:07 Dose: 1,000 mg Levetiracetam (Keppra) 500 mg PO BID [facility] Lorazepam (Ativan) Confirm Administered Dose 2 mg .ROUTE .STK-MED ONE Stop: 10/25/17 16:36 Last Admin: 10/25/17 17:08 Dose: Not Given Lorazepam (Ativan) 1 mg IVPUSH ONETIME ONE Stop: 10/25/17 16:47 Last Admin: 10/25/17 16:50 Dose: 1 mg Metoprolol Tartrate (Lopressor) 25 mg PO BID [facility] Last Admin: 10/28/17 10:02 Dose: Not Given Metoprolol Tartrate (Lopressor) 25 mg PO Q6H [facility] Last Admin: 10/31/17 08:31 Dose: 25 mg Metoprolol Tartrate (Lopressor) 25 mg PO ONETIME ONE Stop: 10/31/17 10:01 Last Admin: 10/31/17 13:47 Dose: 25 mg - Exam Quality Assessment: Reports: DVT Prophylaxis General: Reports: Alert, Cooperative, Mild Distress Lungs: Reports: Clear to Auscultation, Normal Respiratory Effort Cardiovascular: Reports: Regular Rate, Regular Rhythm, No Murmurs GI/Abdominal Exam: Soft, Non-Tender, No Organomegaly, No Distention Neurological: Reports: Other (Expressive aphasia)
[2017-11-02] MEDS ORDERED: levETIRAcetam 250 MG Tab PO SCH ×2 (21:00)
== END 2017-11-02 11:56 | DRG 871 ==
LOC: JP.ED 11:21 → JP.MS 15:18 → JP.ICU 17:18 → JP.MS 10-29 13:45
PROVIDERS: ADMIT Internal Medicine; ATTEND Hospitalist
DX: A41.9 Sepsis, unspecified organism (principal); J18.9 Pneumonia, unspecified organism; E87.1 Hypo-osmolality and hyponatremia; G40.209 Localization-related (focal) (partial) symptomatic epilepsy and epileptic syndromes with complex partial seizures, not intractable, without status epilepticus; R47.01 Aphasia; E86.0 Dehydration; R63.0 Anorexia; Z87.820 Personal history of traumatic brain injury; J98.4 Other disorders of lung; R09.02 Hypoxemia; R00.0 Tachycardia, unspecified; Z87.891 Personal history of nicotine dependence; H54.7 Unspecified visual loss; Z88.7 Allergy status to serum and vaccine
CPT/HCPCS: 36415; 70450; 70470; 70470-26; 70553; 70553-26; 71250; 71250-26; 71260; 80048; 80053; 81001; 83605; 83735; 84443; 85025; 85027; 86140; 87040; 87070; 87077; 87205; 93306; 96360; 96361; 99285-25; A9270-GY; A9576; J1650; J1953; J1956; J2060; J2543; J3475; J3480; J3490; J7030; J7040; J7050; Q9967